=== PATIENT | female | born 1970 | race Caucasian/White ===

== ENCOUNTER 2021-01-16 12:16 | Outpatient (REF) | payer OTHER, SELFPAY ==
--- NOTE | ~2021-01-16 | XR_ITS ---
EXAMINATION: XR LUMBOSACRAL SPINE CLINICAL INFORMATION: Lower back pain. COMPARISON: Lumbar spine radiographs dated 06/22/2018. TECHNIQUE: Three views of the lumbosacral spine. FINDINGS: Normal vertebral body alignment. The lumbar lordosis is maintained. No acute fracture or subluxation. No loss of vertebral body height. Mild loss of intervertebral disc height with tiny anterior endplate osteophytes at L2-L3, unchanged. Additional tiny anterior endplate osteophytes are unchanged. No new lytic or blastic osseous lesion. No abnormal soft tissue calcification. XR/XR lumbar spine 2-3V IMPRESSION: Mild multilevel degenerative disc disease, unchanged.
== END 2021-01-16 12:17 | disposition home or self-care (01) ==
LOC: HO.XRAY 12:16
PROVIDERS: PCP Student in an Organized Health Care Education/Training Program; Visit Provider Student in an Organized Health Care Education/Training Program
DX: M54.5 Low back pain (principal)
CPT/HCPCS: 72100

== ENCOUNTER → 2021-03-05 13:58 | Outpatient (BNVA) | payer OTHER, SELFPAY | PROVIDERS: PCP Student in an Organized Health Care Education/Training Program; Visit Provider Internal Medicine ==

== ENCOUNTER 2021-03-21 16:29 | Outpatient (REF) | payer OTHER, SELFPAY ==
--- NOTE | ~2021-03-21 | MR_ITS ---
EXAMINATION: MR LUMBAR SPINE WITHOUT CONTRAST CLINICAL INFORMATION: 50-year-old with low back pain and complaints of bilateral lumbar radicular symptoms. COMPARISON: None TECHNIQUE: MRI of the lumbar spine was obtained using routine sequences without contrast. FINDINGS: Coronal Alignment: Normal. Sagittal Alignment: Normal. Lumbosacral Junction: Normal. Vertebral Bodies: Normal height. Disc Spaces and Endplates: Mild disc space height loss and disc desiccation noted at L5-S1, with a central radial annular fissure. Mild disc space height loss and disc desiccation at L2-L3 noted with mild spondylosis. Dozv-ay-bmizmwgl disc space height loss, Schmorl's nodes, disc desiccation, and mild spondylosis at T11-T12. Spinal Canal: No abnormal developmental findings. Bone Marrow: No significant marrow-replacing process or bone marrow edema. Conus Medullaris: Terminates at T12-L1. Morphology and signal is normal. Intradural Nerve Roots: Within normal limits. L5-S1: Minimal shallow central disc protrusion noted. Obve-dj-vnrawhaf facet arthrosis noted. No significant canal or neural foraminal stenosis. L4-L5: Minor annular bulging and ncnf-ch-rfecyazh bilateral facet arthrosis without significant canal or neural foraminal stenosis. L3-L4: Normal disc contour. No significant facet arthrosis, canal or neural foraminal stenosis. L2-L3: Mild posterior disc-osteophyte complex noted with mild flattening of the ventral dural sac. Nrkg-fd-lbuturaw facet arthropathy on the right. No significant canal or neural foraminal stenosis. L1-L2: No disc bulge or herniation and no significant facet arthrosis, canal or neural foraminal stenosis. Paraspinal/Retroperitoneal: The paravertebral soft tissues are grossly unremarkable. MR/MR lumbar spine wo con IMPRESSION: 1. Mild discogenic degenerative changes at L5-S1 and L2-L3 with minimal central disc protrusion and radial annular fissuring at L5-S1 and mild posterior disc-osteophyte complex at L2-L3, as described above, with multilevel rhhj-ms-urxuewgf degrees of facet arthropathy without significant spinal canal or neural foraminal stenosis. 2. Discogenic degenerative changes, Schmorl's nodes and mild spondylosis at T11-T12.
== END 2021-03-21 16:30 | disposition home or self-care (01) ==
LOC: HO.MRI 16:29
PROVIDERS: Visit Provider Internal Medicine
DX: M54.50 Low back pain, unspecified (principal)
CPT/HCPCS: 72148

== ENCOUNTER → 2021-04-06 09:18 | Outpatient (BNVA) | payer OTHER, SELFPAY | PROVIDERS: PCP Student in an Organized Health Care Education/Training Program; Visit Provider Internal Medicine ==

== ENCOUNTER 2021-05-16 06:57 | Outpatient (REF) | payer OTHER, SELFPAY ==
--- NOTE | ~2021-05-16 | FL_ITS ---
EXAMINATION: XR FLUOROSCOPY WITH IMAGES CLINICAL INFORMATION: M54.50 - Low back pain, unspecified COMPARISON: MR lumbar spine 03/21/2021 TECHNIQUE: Fluoroscopy performed by Dr. Andreas Baker. Fluoroscopy time: 0.2 minutes DAP: 1.74 Gycm2 Images: 3 FINDINGS: There is an interlaminar spinal needle at lower lumbar spine just right of midline. Epidural contrast is seen. No vascular communication. FL/FL guidance in treatment room IMPRESSION: Fluoroscopy for pain management procedure.
== END 2021-05-16 06:58 | disposition home or self-care (01) ==
LOC: HO.RADIR 06:57
PROVIDERS: Visit Provider Internal Medicine
DX: M54.50 Low back pain, unspecified (principal)
CPT/HCPCS: J1040; Q9967

== ENCOUNTER → 2021-06-15 08:52 | Outpatient (BNVA) | payer OTHER, SELFPAY | PROVIDERS: PCP Student in an Organized Health Care Education/Training Program; Visit Provider Internal Medicine ==

== ENCOUNTER 2021-07-18 06:13 | Outpatient (REF) | payer OTHER, SELFPAY ==
--- NOTE | ~2021-07-18 | FL_ITS ---
EXAMINATION: XR FL GUIDANCE WITH IMAGES CLINICAL INFORMATION: Spondylosis without myelopathy or radiculopathy. COMPARISON: Previous exam April 2021. TECHNIQUE: Fluoroscopy performed by DIANNA Rios. Fluoroscopy Time: 0.4 minutes. DAP: 1.9 Gycm2. Images: 4. FINDINGS: Images demonstrate needle placement and contrast injection adjacent to the bilateral lateral L3, L4 and L5 vertebral bodies. FL/FL guidance in treatment room IMPRESSION: Fluoroscopy guidance for pain management procedure.
== END 2021-07-18 06:14 | disposition home or self-care (01) ==
LOC: HO.RADIR 06:13
PROVIDERS: Visit Provider Internal Medicine
DX: M47.816 Spondylosis without myelopathy or radiculopathy, lumbar region (principal); M54.50 Low back pain, unspecified
CPT/HCPCS: 64493; 64494; Q9967

== ENCOUNTER → 2021-07-20 10:55 | Outpatient (BNVA) | payer OTHER, SELFPAY | PROVIDERS: Visit Provider Internal Medicine | DX: Z13.89 Encounter for screening for other disorder (principal) ==

== ENCOUNTER 2021-08-29 05:51 | Outpatient (REF) | payer OTHER, SELFPAY ==
--- NOTE | ~2021-08-29 | FL_ITS ---
EXAMINATION: XR FLUOROSCOPY WITH IMAGES CLINICAL INFORMATION: Spondylosis without myelopathy. COMPARISON: Previous exam June 2021. TECHNIQUE: Fluoroscopy performed by DIANNA Rios Fluoroscopy time: 0.4 minutes DAP: 1.8 Gy-cm2 Images: 3 FINDINGS: Images demonstrate needle placement and contrast injection adjacent to the bilateral lateral L4 and L5 vertebral bodies. FL/FL guidance in treatment room IMPRESSION: Fluoroscopy guidance for pain management procedure.
== END 2021-08-29 05:52 | disposition home or self-care (01) ==
LOC: HO.RADIR 05:51
PROVIDERS: Visit Provider Internal Medicine
DX: M47.816 Spondylosis without myelopathy or radiculopathy, lumbar region (principal)
CPT/HCPCS: 64493; 64494; J2795; Q9967

== ENCOUNTER 2021-09-07 11:22 | Outpatient (REF) | payer OTHER, SELFPAY ==
--- NOTE | ~2021-09-07 | XR_ITS ---
EXAMINATION: XR CHEST CLINICAL INFORMATION: Cough COMPARISON: Previous chest x-ray May 2016 TECHNIQUE: 2 views of the chest were obtained. FINDINGS: The cardiac and mediastinal contours are normal. The lungs are clear. There is no pleural effusion or pneumothorax. There are mild degenerative changes of the spine. XR/XR chest 2V IMPRESSION: No evidence for acute disease in the chest.
== END 2021-09-07 11:23 | disposition home or self-care (01) ==
LOC: HO.XRAY 11:22
PROVIDERS: Absent Provider Family Medicine; PCP Student in an Organized Health Care Education/Training Program; Visit Provider Internal Medicine
DX: R05.8 Other specified cough (principal); M47.816 Spondylosis without myelopathy or radiculopathy, lumbar region
CPT/HCPCS: 71046

== ENCOUNTER 2021-10-04 15:13 | Outpatient (REF) | payer OTHER, SELFPAY ==
--- NOTE | ~2021-10-04 | XR_ITS ---
EXAMINATION: XR KNEE, LEFT XR TIBIA/FIBULA, LEFT XR ANKLE, LEFT CLINICAL INFORMATION: Leg pain COMPARISON: None TECHNIQUE: 4 views of the left knee. This includes upright AP view. 2 views of the left tibia/fibula. 2 views of the left ankle. FINDINGS: Left knee: No fracture or subluxation. Compartmental joint spaces are maintained. No joint effusion. The soft tissues appear unremarkable. Left tibia/fibula: No fracture or cortical disruption. Diffuse mild soft tissue swelling. Left ankle: No fracture or dislocation. The ankle mortise is congruent. Small heel spurs noted. No ankle joint effusion. XR/XR tibia fibula LT 2V IMPRESSION: No acute osseous abnormality involving the imaged left lower extremity. Heel spurs at the ankle. Soft tissue swelling of the lower leg.
--- NOTE | ~2021-10-04 | XR_ITS ---
EXAMINATION: XR KNEE, LEFT XR TIBIA/FIBULA, LEFT XR ANKLE, LEFT CLINICAL INFORMATION: Leg pain COMPARISON: None TECHNIQUE: 4 views of the left knee. This includes upright AP view. 2 views of the left tibia/fibula. 2 views of the left ankle. FINDINGS: Left knee: No fracture or subluxation. Compartmental joint spaces are maintained. No joint effusion. The soft tissues appear unremarkable. Left tibia/fibula: No fracture or cortical disruption. Diffuse mild soft tissue swelling. Left ankle: No fracture or dislocation. The ankle mortise is congruent. Small heel spurs noted. No ankle joint effusion. XR/XR ankle LT 2V IMPRESSION: No acute osseous abnormality involving the imaged left lower extremity. Heel spurs at the ankle. Soft tissue swelling of the lower leg.
--- NOTE | ~2021-10-04 | XR_ITS ---
EXAMINATION: XR KNEE, LEFT XR TIBIA/FIBULA, LEFT XR ANKLE, LEFT CLINICAL INFORMATION: Leg pain COMPARISON: None TECHNIQUE: 4 views of the left knee. This includes upright AP view. 2 views of the left tibia/fibula. 2 views of the left ankle. FINDINGS: Left knee: No fracture or subluxation. Compartmental joint spaces are maintained. No joint effusion. The soft tissues appear unremarkable. Left tibia/fibula: No fracture or cortical disruption. Diffuse mild soft tissue swelling. Left ankle: No fracture or dislocation. The ankle mortise is congruent. Small heel spurs noted. No ankle joint effusion. XR/XR knee LT 4V IMPRESSION: No acute osseous abnormality involving the imaged left lower extremity. Heel spurs at the ankle. Soft tissue swelling of the lower leg.
== END 2021-10-04 15:14 | disposition home or self-care (01) ==
LOC: HO.XRAY 15:13
PROVIDERS: Absent Provider Student in an Organized Health Care Education/Training Program; PCP Student in an Organized Health Care Education/Training Program; Visit Provider Family Medicine
DX: M79.605 Pain in left leg (principal)
CPT/HCPCS: 73564; 73590; 73600

== ENCOUNTER 2021-11-07 13:29 | Day surgery (SDC) | payer OTHER, SELFPAY ==
--- NOTE | ~2021-11-07 | FL_ITS ---
EXAMINATION: XR FLUOROSCOPY WITH IMAGES CLINICAL INFORMATION: Back pain. Pain management procedure. COMPARISON: MR lumbar spine 03/21/2021 TECHNIQUE: Fluoroscopy performed by Dr. Andreas Baker. Fluoroscopy time: 0.5 minutes. Cumulative Dose: 18.1 mGy. DAP: 2.88 Gycm2. Images: 2. FINDINGS: There are spinal needle/electrodes overlying the bilateral outer left L3, L4, and L5 neural foramen. FL/FL guidance in OR IMPRESSION: Fluoroscopy for pain management procedures.
[2021-11-07 08:51] VITALS: BMI 38.7
[2021-11-07] MEDS: clonazePAM 1 MG TABLET PO (13:47)
[2021-11-07 13:48] VITALS: BP 115/71; PULSE 94; RESP 18; TEMP 36.8; O2SAT 97
[2021-11-07 16:12] VITALS: BP 134/77; PULSE 83; RESP 20; TEMP 36.4; O2SAT 98
--- NOTE | 2021-11-07 16:49 | MHC.SHP ---
Pre-Procedural Eval Section A Date of Service: 11/07/21 The patient is an INPATIENT: No Changes since office visit: Yes Patient answered all questions The History & Physical has been completed within 30 days and I have reviewed it.: No Section B Chief Complaint: Spondylosis without myelopathy or radiculopathy, l Relevant Family History (Specify if Yes): No Present Medications: see Short Stay Collaborative assessment Medical History: No relevant PMH History of Previous Operations: No relevant previous surgery Allergies: Allergies Allergy/AdvReac Type Severity Reaction Status Date / Time No Known Allergies Allergy Verified 09/07/21 11:23 Review of Systems Sugical H&P ROS: Negative: Constitution, Cardiovascular and Respiratory Exam Surgical H&P Exam: Normal: HEENT, Normal: Heart and Normal: Lungs Plan Diagnosis/Plan: Unchanged I have reviewed the history and physical and performed a pertinent physical examination on my patient. No changes have occurred unless specified.
--- NOTE | 2021-11-07 16:49 | PM.OP ---
Brief Operative Note Date of Service: 11/07/21 Pre-op diagnosis: .Lumbar spondylosis Post-op diagnosis: same Procedure: Radiofrequency lesioning medial branch nerves, Left L3, L4 medial branches and L5 dorsal ramus (L4/5 and L5/S1) (2 levels, 3 nerves) Surgeon: Andreas Baker MD Anesthesia: local Was an Produce Production Team Member used for this Procedure?: No Estimated blood loss (mL): 1 Pathology: none sent Condition: stable Disposition: same day
--- NOTE | 2021-11-07 16:50 | P.OP_ITS ---
Operative Note Operative Note Date of Service: 11/07/21 Narrative: Radiofrequency lesioning medial branch nerves, Left L3, L4 medial branches and L5 dorsal ramus (L4/5 and L5/S1) (2 levels, 3 nerves) After obtaining written consent, pre-procedure blood pressure and heart rate were stable and recorded in the nursing record. The patient was placed in the prone position. The lumbar area was prepped with chloraprep and draped in sterile fashion. The skin over the target for each medial branch nerve was anesthetized with 0.5% lidocaine. An 18 gauge radiofrequency cannula was advanced to each target site under fluoroscopic guidance. No paresthesias were elicited with needle placement and aspiration was negative for heme and CSF. Impedences were verified under 600 ohms. Sensory testing (50 Hz) and then motor testing (2 Hz) confirmed needle placement at each site within the appropriate voltage thresholds and needles were adjusted until no paresthesia was reported in the left lower extremity on either sensory or motor testing. Each site was injected with 0.5 ml 2% preservative-free lidocaine. Radiofrequency lesioning was performed for 90 seconds at 80 deg Celcius. Each site was then injected with 0.5ml 0.5% ropivacaine. The needles were removed, skin cleansed and a sterile bandages were applied. The patient tolerated the procedure well and no complications were encountered. Following the procedure the patient's vital signs were stable. The patient was discharged home in good condition with post- procedural instructions. Time Out: Immediately prior to the procedure, the following was verbally confirmed that there is a signed consent form and that the correct patient, planned procedure, site and side are consistent with documentation and that necessary equipment and/or blood products are available prior to the start of the case. Complications: none EBL: <1 cc
--- NOTE | 2021-11-07 17:32 | PC.NURSE ---
patient left discharge instructions upon discharge. call to review plan of care and review instructions with patient. surgical injection discharge instructions mailed to patient home
== END 2021-11-07 17:01 | disposition home or self-care (01) ==
PROVIDERS: PCP Student in an Organized Health Care Education/Training Program; Visit Provider Internal Medicine
PROC: (CPT 64635; principal; 2021-11-07 15:20)
DX: M47.816 Spondylosis without myelopathy or radiculopathy, lumbar region (principal); M12.9 Arthropathy, unspecified; M54.50 Low back pain, unspecified; E78.00 Pure hypercholesterolemia, unspecified; I10 Essential (primary) hypertension; E11.9 Type 2 diabetes mellitus without complications; Z79.899 Other long term (current) drug therapy; F17.210 Nicotine dependence, cigarettes, uncomplicated
CPT/HCPCS: 64635; 64636; J3300

== ENCOUNTER 2021-11-21 12:10 | Day surgery (SDC) | payer OTHER, SELFPAY ==
--- NOTE | ~2021-11-21 | FL_ITS ---
EXAMINATION: XR FLUOROSCOPY WITH IMAGES CLINICAL INFORMATION: Lumbar RFA. COMPARISON: MR lumbar spine 03/21/2021 TECHNIQUE: Fluoroscopy performed by Dr. Andreas Baker. Fluoroscopy time: 0.4 minutes. Cumulative Dose: 19.3 mGy. DAP: 3.41 Gy-cm2. Images: 2. FINDINGS: There are spinal needles overlying the outer right L3, L4, and L5 neural foramen. FL/FL guidance in OR IMPRESSION: Fluoroscopy for pain management procedures.
[2021-11-21 12:16] VITALS: BP 122/91; PULSE 87; RESP 19; TEMP 36; O2SAT 98; BMI 34.7
[2021-11-21] MEDS: LORazepam 1 MG TABLET PO (12:26)
[2021-11-21 14:35] VITALS: BP 141/74; PULSE 79; RESP 16; TEMP 36.3; O2SAT 99
--- NOTE | 2021-11-22 12:04 | MHC.SHP ---
Pre-Procedural Eval Section A Date of Service: 11/21/21 The patient is an INPATIENT: No Changes since office visit: Yes Patient answered all questions The History & Physical has been completed within 30 days and I have reviewed it.: No Section B Chief Complaint: Spondylosis without myelopathy or radiculopathy Details of Present Illness: low back pain Relevant Family History (Specify if Yes): No Relevant Social History: None Present Medications: see Short Stay Collaborative assessment Medical History: No relevant PMH History of Previous Operations: No relevant previous surgery Allergies: Allergies Allergy/AdvReac Type Severity Reaction Status Date / Time No Known Allergies Allergy Verified 09/07/21 11:23 Review of Systems Sugical H&P ROS: Negative: Constitution, Cardiovascular and Respiratory Exam Surgical H&P Exam: Normal: HEENT, Normal: Heart and Normal: Lungs Plan Diagnosis/Plan: Unchanged I have reviewed the history and physical and performed a pertinent physical examination on my patient. No changes have occurred unless specified.
--- NOTE | 2021-11-22 12:05 | P.BOP_ITS ---
Brief Operative Note Date of Service: 11/21/21 Pre-op diagnosis: Lumbar spondylosis Post-op diagnosis: same Procedure: Right L3, L4 medial branch, L5 dorsal ramus radiofrequency ablation Implants: None Surgeon: Andreas Baker MD Anesthesia: local Was an Material Preparation Worker used for this Procedure?: No Estimated blood loss (mL): 1 Pathology: none sent Condition: stable Disposition: same day
--- NOTE | 2021-11-22 12:07 | W.PM.OPN ---
Operative Note Operative Note Date of Service: 11/21/21 Narrative: Radiofrequency lesioning medial branch nerves, Right L3, L4 medial branches and L5 dorsal ramus (L4/5 and L5/S1) (2 levels, 3 nerves) After obtaining written consent, pre-procedure blood pressure and heart rate were stable and recorded in the nursing record. The patient was placed in the prone position. The lumbar area was prepped with chloraprep and draped in sterile fashion. The skin over the target for each medial branch nerve was anesthetized with 0.5% lidocaine. An 18 gauge radiofrequency cannula was advanced to each target site under fluoroscopic guidance. No paresthesias were elicited with needle placement and aspiration was negative for heme and CSF. Impedences were verified under 600 ohms. Sensory testing (50 Hz) and then motor testing (2 Hz) confirmed needle placement at each site within the appropriate voltage thresholds. Each site was injected with 0.5 ml 2% preservative-free lidocaine. Radiofrequency lesioning was performed for 90 seconds at 80 deg Celcius. Each site was then injected with 0.5ml 0.5% ropivacaine. The needle was removed, skin cleansed and a sterile bandage was applied. The patient tolerated the procedure well and no complications were encountered. Following the procedure the patient's vital signs were stable. The patient was discharged home in good condition with post-procedural instructions. Time Out: Immediately prior to the procedure, the following was verbally confirmed that there is a signed consent form and that the correct patient, planned procedure, site and side are consistent with documentation and that necessary equipment and/or blood products are available prior to the start of the case. Complications: none EBL: <5 cc
== END 2021-11-21 14:43 | disposition home or self-care (01) ==
PROVIDERS: PCP Student in an Organized Health Care Education/Training Program; Visit Provider Internal Medicine
PROC: (CPT 64635; principal; 2021-11-21 13:10)
DX: M47.816 Spondylosis without myelopathy or radiculopathy, lumbar region (principal); M54.50 Low back pain, unspecified; F41.8 Other specified anxiety disorders; I10 Essential (primary) hypertension; E11.9 Type 2 diabetes mellitus without complications; E78.00 Pure hypercholesterolemia, unspecified; Z79.899 Other long term (current) drug therapy
CPT/HCPCS: 64635; 64636

== ENCOUNTER 2022-05-07 09:57 | Outpatient (REF) | payer OTHER, SELFPAY ==
--- NOTE | ~2022-05-07 | XR_ITS ---
EXAMINATION: XR SHOULDER, LEFT CLINICAL INFORMATION: Chronic left shoulder pain. COMPARISON: None TECHNIQUE: Left shoulder is imaged in 4 views. FINDINGS: No fracture, dislocation, destructive process. Acromioclavicular alignment is normal. Tiny spur at the greater tuberosity. No definite rotator cuff calcifications. There is mild spurring lateral acromium likely at origin deltoid. Left lung apex unremarkable. XR/XR shoulder LT min 2V IMPRESSION: 1. No fracture, dislocation, destructive process. 2. Tiny spur at greater tuberosity. Minor spurring at origin deltoid.
== END 2022-05-07 09:58 | disposition home or self-care (01) ==
LOC: HO.XRAY 09:57
PROVIDERS: PCP Student in an Organized Health Care Education/Training Program; Visit Provider Internal Medicine
DX: M79.622 Pain in left upper arm (principal)
CPT/HCPCS: 73030

== ENCOUNTER → 2022-10-14 15:21 | Outpatient (BNVA) | payer OTHER, SELFPAY | PROVIDERS: PCP Student in an Organized Health Care Education/Training Program; Visit Provider Internal Medicine ==

== ENCOUNTER 2023-06-07 07:19 | Outpatient (REF) | payer OTHER, SELFPAY | END 2023-06-07 07:20 | disposition home or self-care (01) | LOC: HO.MAMMO 07:19 | PROVIDERS: PCP Student in an Organized Health Care Education/Training Program; Visit Provider Student in an Organized Health Care Education/Training Program | DX: Z12.31 Encounter for screening mammogram for malignant neoplasm of breast (principal) | CPT/HCPCS: 77063; 77067 ==

== ENCOUNTER → 2023-06-07 07:30 | Outpatient (BNV) | payer OTHER, SELFPAY | PROVIDERS: PCP Student in an Organized Health Care Education/Training Program; Visit Provider Radiology Diagnostic Radiology | DX: Z12.31 Encounter for screening mammogram for malignant neoplasm of breast (principal) | CPT/HCPCS: 77063; 77067 ==

== ENCOUNTER 2023-07-03 08:26 | Emergency (ER) | payer OTHER, SELFPAY ==
[2023-07-03 08:30] VITALS: BP 143/77; PULSE 86; RESP 18; TEMP 35.8; O2SAT 98; BMI 38.4
--- NOTE | 2023-07-03 09:03 | ED_ITS ---
HPI - General Adult General Chief complaint: Headache Stated complaint: migraine Time Seen by Provider: 07/03/23 08:48 History of Present Illness HPI narrative: The patient is a 53-year-old woman who says that she has had a headache for about 6 days. She says that when she was in her 20s she had fairly frequent migraines but then her migraine stopped. She says that when this headache started last week at 1st she thought it was just a regular headache but the headache persisted and became more severe and was associated with photophobia and nausea. Three days ago on Friday she went to see her PCP who prescribed Fioricet. She has been using Fioricet but it has not helped. 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 She last worked 2 days ago despite the headache. This morning the headache persisted and she drove herself to the hospital. She has had no fever, sweats, chills. She has had some nausea. Related Data Home Medications Medication Instructions Recorded Confirmed cetirizine 10 mg tablet 10 mg PO DAILY PRN Pain 03/05/21 10/14/22 pantoprazole 40 mg tablet,delayed 40 mg PO DAILY 03/05/21 10/14/22 release sertraline 25 mg tablet (Zoloft) 25 mg PO DAILY 03/05/21 10/14/22 Previous Rx's Medication Instructions Recorded tizanidine 2 mg capsule 2 mg PO TID PRN for muscle spasm 06/04/23 #90 caps Allergies Allergy/AdvReac Type Severity Reaction Status Date / Time No Known Allergies Allergy Verified 10/14/22 15:38 Review of Systems 2 Review of Systems: Yes all other systems are reviewed and are negative [facility] Past Medical History Medical History (Updated 07/03/23 @ 12:20 by Stevie Zamora MD) Lumbar spondylosis Lumbar radicular pain Low back pain Candidal intertrigo Hypercholesterolemia DM type 2 (diabetes mellitus, type 2) HTN (hypertension), benign Arthropathy Anxiety and depression Social History Social History Patient Tobacco Use Status: Current everyday Tobacco user Smoked in Last 30 Days: Yes Use of substances other than those prescribed or required for medical reasons: No Advance Directives: No Physical Exam ED Vital Signs: Vital Signs - 24 hr 07/03/23 08:30 07/03/23 10:02 07/03/23 12:41 Temperature 96.5 F L 98.2 F 98 F Pulse Rate 86 77 64 Respiratory Rate 18 17 18 Blood Pressure 143/77 H 132/61 134/63 Pulse Oximetry 98 98 98 Oxygen Delivery Method Room Air Room Air Room Air BMI result Body Mass Index 38.4 Const Other: The patient is awake and alert. She was wearing dark glasses in a darkened room. She had a subdued demeanor but otherwise did not seem in acute distress or toxic. HENMT Other: Face is symmetrical. Mucous membranes moist Eyes Other: Pupils are round equal, conjunctivae are clear, extraocular movements intact Neck Other: Neck is supple Resp Effort & Inspection: normal respiratory effort Auscultation: clear to auscultation bilaterally Cardio Rate: regular rate Rhythm: regular rhythm Heart sounds: S1 normal heart sound present and S2 normal heart sound present Skin Other: The skin is dry and unremarkable Neuro Other: The patient is awake and alert. She is photophobic. Speech is clear. Face is symmetrical. Eye movements intact. She moves her extremities normally. Seems neurologically intact Extrem Other: No peripheral edema. Medications Administered Discontinued Medications Generic Name Dose Route Start Last Admin Trade Name Avtar PRN Reason Stop Dose Admin Diphenhydramine HCl 25 mg 07/03/23 09:05 07/03/23 09:52 Diphenhydramine Hcl 50 Mg/Ml Vial IVPUSH 07/03/23 09:06 25 mg ONCE ONE Administration Sodium Chloride 1,000 mls @ 999 mls/hr 07/03/23 09:15 07/03/23 11:07 Ns IV 07/03/23 10:15 Infused .Q1H1M TARIQ Infusion Ketorolac Tromethamine 15 mg 07/03/23 09:05 07/03/23 09:52 Ketorolac Tromethamine 15 Mg/Ml Vial IVPUSH 07/03/23 09:06 15 mg ONCE ONE Administration Prochlorperazine Edisylate 10 mg 07/03/23 10:04 07/03/23 10:07 Prochlorperazine Edisylate 10 Mg/2 Ml Vial IVPUSH 07/03/23 10:05 10 mg ONCE ONE Administration Medical Decision Making Medical Decision Making [facility] Narrative: The patient is a 53-year-old woman who presents with 6 days of headache that she describes as a migraine headache. She has not had a migraine for many years but she had migraines in her 20s. Her description of the headache does not really suggest any red flags. There was no sudden onset to the headache. There have been no fevers. She has no neurological findings. Her neck is supple. The patient was treated clinically with prochlorperazine, ketorolac, diphenhydramine, and IV fluids. She had excellent improvement in her headache and was eager for discharge. Lab Data 07/03/23 09:48 07/03/23 09:48 Labs: Lab Results 07/03/23 Range/Units 09:48 WBC 7.2 (4.8-10.8) X10*3/uL RBC 5.07 (4.20-5.50) X10*6/uL Hgb 11.5 L (12.0-16.0) g/dl Hct 38.1 (37.0-47.0) % MCV 75.1 L (80.0-98.0) fL MCH 22.7 L (27.0-33.0) pg MCHC 30.2 L (31.0-35.0) g/dl RDW 17.6 H (11.0-16.0) % Plt Count 302 (160-400) X10*3/uL MPV 9.5 (9.4-12.3) fL Immature Gran % (Auto) 0.8 H (0.0-0.4) % Neut % (Auto) 63.3 (45-73) % Lymph % (Auto) 28.0 (20-40) % Harris % (Auto) 4.1 (2-11) % Eos % (Auto) 2.8 (0-4) % Baso % (Auto) 1.0 (0-2) % Lymph # (Auto) 2.0 (1.2-4.9) X10*3/uL Harris # (Auto) 0.3 (0.1-1.2) X10*3/uL Eos # (Auto) 0.2 (0.0-0.4) X10*3/uL Baso # (Auto) 0.1 (0.0-0.2) X10*3/uL Abs Immat Gran (auto) 0.06 H (0.00-0.03) X10*3/uL Absolute Neuts (auto) 4.6 (2.0-8.3) x10*3/uL Absolute Nucleated RBC 0.000 (0.0-0.012) X10*3/uL Nucleated RBC % (auto) 0.0 (0.0-0.2) /100WBC Sodium 138 (135-145) mmol/L Potassium 3.6 (3.3-5.1) mmol/L Chloride 103 (96-108) mmol/L Carbon Dioxide 29 (22-29) mmol/L Anion Gap 10 L (12-20) BUN 10 (9-16) mg/dL Creatinine 0.84 (0.5-1.4) mg/dL Estim Creat Clear Calc 97.3 Estimated GFR > 60 Random Glucose 190 H (60-115) mg/dL Calcium 9.0 (8.4-10.2) mg/dL Magnesium 1.9 (1.6-2.6) mg/dL Total Bilirubin 0.3 (0.0-1.0) mg/dL Direct Bilirubin 0.1 (0.0-0.5) mg/dL AST 12 (5-31) U/L ALT 16 (0-31) U/L Alkaline Phosphatase 78 (39-117) U/L Troponin I High Sens < 2.7 (<3.5-17.0) ng/L C-Reactive Protein 1.18 H (< or = 0.50) mg/dL B-Natriuretic Peptide < 10 (<100) pg/mL Total Protein 7.1 (6.5-8.0) g/dL Albumin 3.8 (3.5-5.0) g/dL Independent Interpretation I performed an independent interpretation of an: EKG Interpretation: EKG at 09:17 shows normal sinus rhythm at 76 beats per minute. It is a normal EKG. Discharge Plan Discharge Clinical Impression: Headache, migraine Patient Disposition: Home, Self-Care Additional Instructions: Please rest and take it easy today. Continue your regular medications. Please follow up soon with your regular doctor to discuss this episode further. Return to the emergency room if significantly worse Prescriptions: No Action tizanidine 2 mg capsule 2 mg PO TID PRN (Reason: for muscle spasm) Qty: 90 0RF cetirizine 10 mg tablet 10 mg PO DAILY PRN (Reason: Pain) pantoprazole 40 mg tablet,delayed release (DR/EC) 40 mg PO DAILY sertraline [Zoloft] 25 mg tablet 25 mg PO DAILY Referrals: Kristin Rivera MD [Primary Care Provider] - (migraine) Interventions: ED Discharge Assessment Last Done: 07/03/23 12:42 Discharge Date/Time: 07/03/23 12:42
--- NOTE | 2023-07-03 09:06 | ECG_ITS ---
Test Reason : MIGRAINE Blood Pressure : / mmHG Vent. Rate : 076 BPM Atrial Rate : 076 BPM P-R Int : 172 ms QRS Dur : 088 ms QT Int : 410 ms P-R-T Axes : 018 042 021 degrees QTc Int : 461 ms Normal sinus rhythm Nonspecific T wave abnormality Prolonged QT Abnormal ECG When compared with ECG of 31-MAY-2016 07:07, No significant change was found Referred By: Stevie Zamora Electronically Signed By:Deric Perez
[2023-07-03 09:52] LABS: MANUAL DIFF FLAG NO
[2023-07-03] MEDS: Ketorolac Tromethamine 15 MG/ML VIAL IVPUSH (09:52)
[2023-07-03] MEDS: diphenhydrAMINE HCL 50 MG/ML VIAL 25 MG IVPUSH (09:52)
[2023-07-03 09:54] LABS: Basophils Absolute Auto 0.1 X10*3/uL (0.0-0.2); Eosinophils Absolute Auto 0.2 X10*3/uL (0.0-0.4); Eosinophils Percent Auto 2.8 % (0-4); Hematocrit 38.1 % (37.0-47.0); Hemoglobin 11.5 g/dl (12.0-16.0); Imm Gran Abs Auto 0.06 X10*3/uL (0.00-0.03); Imm Gran Pct Auto 0.8 % (0.0-0.4); Mean Corpuscular HGB Conc 30.2 g/dl (31.0-35.0); Mean Corpuscular Hemoglobin 22.7 pg (27.0-33.0); Mean Corpuscular Volume 75.1 fL (80.0-98.0); Mean Platelet Volume 9.5 fL (9.4-12.3); Monocytes Absolute Auto 0.3 X10*3/uL (0.1-1.2); Monocytes Percent Auto 4.1 % (2-11); Neutrophils Absolute Auto 4.6 x10*3/uL (2.0-8.3); Neutrophils Percent Auto 63.3 % (45-73); Platelet Count 302 X10*3/uL (160-400); Red Blood Count 5.07 X10*6/uL (4.20-5.50); Red Cell Distribution Width 17.6 % (11.0-16.0); White Blood Count 7.2 X10*3/uL (4.8-10.8)
[2023-07-03] MEDS: 0.9 % Sodium Chloride 1,000 ML 999 ML IV (09:54)
[2023-07-03 10:02] VITALS: BP 132/61; PULSE 77; RESP 17; TEMP 36.8; O2SAT 98
[2023-07-03] MEDS: Prochlorperazine Edisylate 10 MG/2 ML VIAL IVPUSH (10:07)
[2023-07-03 10:20] LABS: Alanine Aminotransferase 16 U/L (0-31); Albumin Level 3.8 g/dL (3.5-5.0); Alkaline Phosphatase 78 U/L (39-117); Anion Gap 10 (12-20); Aspartate Amino Transferase 12 U/L (5-31); Bilirubin Direct 0.1 mg/dL (0.0-0.5); Bilirubin Total 0.3 mg/dL (0.0-1.0); Blood Urea Nitrogen 10 mg/dL (9-16); C Reactive Protein 1.18 mg/dL (< or = 0.50); Carbon Dioxide 29 mmol/L (22-29); Chloride 103 mmol/L (96-108); Creatinine Clr Calc Pharmacy 97.3; Estimated Glomerular Filt Rate > 60; Glucose Random 190 mg/dL (60-115); Magnesium 1.9 mg/dL (1.6-2.6); Potassium 3.6 mmol/L (3.3-5.1); Sodium 138 mmol/L (135-145); Total Protein 7.1 g/dL (6.5-8.0)
[2023-07-03 10:22] LABS: B Type Natriuretic Peptide < 10 pg/mL (<100)
[2023-07-03 10:29] LABS: Troponin-I High Sensitivity < 2.7 ng/L (<3.5-17.0)
[2023-07-03 12:41] VITALS: BP 134/63; PULSE 64; RESP 18; TEMP 36.6; O2SAT 98
== END 2023-07-03 12:42 | disposition home or self-care (01) ==
PROVIDERS: Emergency Provider Emergency Medicine; PCP Student in an Organized Health Care Education/Training Program
DX: G43.909 Migraine, unspecified, not intractable, without status migrainosus (principal); R11.0 Nausea; R94.31 Abnormal electrocardiogram [ECG] [EKG]; R06.02 Shortness of breath; F17.200 Nicotine dependence, unspecified, uncomplicated; Z79.899 Other long term (current) drug therapy
CPT/HCPCS: 36415; 80048; 80076; 83735; 83880; 84484; 85025; 86140; 93005; 96361; 96374; 96375; 99284; 99285; J0737; J1200; J1885

== ENCOUNTER → 2023-07-03 09:06 | Outpatient (BNV) | payer OTHER, SELFPAY | PROVIDERS: Emergency Provider Emergency Medicine; PCP Student in an Organized Health Care Education/Training Program; Visit Provider Internal Medicine Cardiovascular Disease | DX: I45.81 Long QT syndrome (principal) | CPT/HCPCS: 93010 ==

== ENCOUNTER 2024-03-12 08:40 | Outpatient (AMB) | payer OTHER, SELFPAY ==
[2024-03-12 08:47] VITALS: BP 130/72; PULSE 105; RESP 16; O2SAT 96; BMI 36.8
--- NOTE | 2024-03-12 08:47 | A.OFFVIS_ITS ---
Vital Signs 03/12/24 08:47 Height 5 ft 6 in Weight 228 lb BMI 36.8 BP 130/72 Blood Pressure Location Lt brachial Position Sitting Respiration 16 Pulse 105 H Pulse Source Pulse Oximeter Pulse Oximetry (%) 96 Oxygen Delivery Method Room Air Intake Visit Reasons: back pain Allergies No Known Allergies Allergy (Verified 03/12/24 08:48) Medication List - Last Reconciled 03/12/24 by Jerrica Rodríguez LPN cetirizine 10 mg PO DAILY PRN pantoprazole 40 mg PO DAILY sertraline (Zoloft) 25 mg PO DAILY tizanidine 2 mg PO TID PRN HPI HPI back pain: Details: 53-year-old female who presents today to the office for a back pain. 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 She states that she quit smoking. She reports continued muscle spasms in the back associated with chronic persistent back pain. The pain started returning about two months ago. Her pain is worse when lying down in a prone position. She has not received SIJ injections in the past. Her pain is localized in the midline region. She had fractured her arm a few years ago and had cortisone injections for pain relief.?She has a psychologist. She lives alone but her children live nearby. Past Procedures: 11/22/21: Right L3-L4-L5 RFA ? 50% relief. 11/07/21: Left L3-L4-L5 RFA ? 50% relief. 08/28/21: Bilateral lumbar L3-L4-L5 MBBs - 90% relief ongoing 2 weeks out 07/18/21: Bilateral lumbar L3-L4-L5 MBBs ? 100% for first 24 hours followed by 60% relief ongoing. 05/16/21: L5-S1 interlaminar midline injection ? 50% relief in back pain with complete resolution of radicular symptoms. [facility] Medical History (Updated 03/23/24 @ 08:40 by Andreas Baker MD) Lumbar spondylosis Lumbar radicular pain Low back pain Candidal intertrigo Hypercholesterolemia DM type 2 (diabetes mellitus, type 2) HTN (hypertension), benign Arthropathy Anxiety and depression Social History Patient Tobacco Use Status: Current everyday Tobacco user Review of Systems Const All systems reviewed & are unremarkable except as noted in HPI and below Physical Exam Vital Signs: Last Vital Signs Pulse 105 H 03/12/24 08:47 Resp 16 03/12/24 08:47 BP 130/72 03/12/24 08:47 Pulse Ox 96 03/12/24 08:47 Oxygen Delivery Method Room Air 03/12/24 08:47 BMI result Body Mass Index 36.8 General: Appears afebrile. Alert and oriented. Mood and affect appropriate. Follows and participates in conversation appropriately. Respiratory effort is unlabored. Able to transition from sit to stand unassisted. Ambulates with bilaterally normal heel strike and toe off. Results Reviewed Results Reviewed: 03/21/21: MR LUMBAR SPINE WITHOUT CONTRAST FINDINGS: Coronal Alignment: Normal. Sagittal Alignment: Normal. Lumbosacral Junction: Normal. Vertebral Bodies: Normal height. Disc Spaces and Endplates: Mild disc space height loss and disc desiccation noted at L5-S1, with a central radial annular fissure. Mild disc space height loss and disc desiccation at L2-L3 noted with mild spondylosis. Picb-xj-mfrrthqb disc space height loss, Schmorl's nodes, disc desiccation, and mild spondylosis at T11-T12. Spinal Canal: No abnormal developmental findings. Bone Marrow: No significant marrow-replacing process or bone marrow edema. Conus Medullaris: Terminates at T12-L1. Morphology and signal is normal. Intradural Nerve Roots: Within normal limits. L5-S1: Minimal shallow central disc protrusion noted. Fxcu-yn-njncluec facet arthrosis noted. No significant canal or neural foraminal stenosis. L4-L5: Minor annular bulging and ibbh-nv-evfqdvgf bilateral facet arthrosis without significant canal or neural foraminal stenosis. L3-L4: Normal disc contour. No significant facet arthrosis, canal or neural foraminal stenosis. L2-L3: Mild posterior disc-osteophyte complex noted with mild flattening of the ventral dural sac. Rpcq-hy-qygsqbfs facet arthropathy on the right. No significant canal or neural foraminal stenosis. L1-L2: No disc bulge or herniation and no significant facet arthrosis, canal or neural foraminal stenosis. Paraspinal/Retroperitoneal: The paravertebral soft tissues are grossly unremarkable. IMPRESSION: 1. Mild discogenic degenerative changes at L5-S1 and L2-L3 with minimal central disc protrusion and radial annular fissuring at L5-S1 and mild posterior disc-osteophyte complex at L2-L3, as described above, with multilevel kdbk-du-mpjslxhg degrees of facet arthropathy without significant spinal canal or neural foraminal stenosis. 2. Discogenic degenerative changes, Schmorl's nodes and mild spondylosis at T11-T12. Assessment & Plan Assessment & Plan (1) Dysfunction of the multifidus muscle of lumbar region: Code(s): M62.85 - Dysfunction of the multifidus muscles, lumbar region Category: Medical (2) Low back pain: Code(s): M54.50 - Low back pain, unspecified Category: Medical (3) Lumbar spondylosis: Code(s): M47.816 - Spondylosis without myelopathy or radiculopathy, lumbar region Category: Medical Plan Once again, I reviewed her MRI, showing intervertebral disc degeneration as well as lumbar facet arthritis. She has axial low back pain that has only been partially responsive to epidural steroids and lumbar facet radiofrequency ablation. Her MRI scan also shows multifidus atrophy and fibrosis. I think she would benefit from restorative multifidus stimulation given her young age. I am not keen to implant a permanent multifidus stimulation device, but she would benefit from temporary stimulation of the medial branch nerves and multifidus muscle. She already has a therapist and is in an otherwise good psychological state. She will request her therapist to provide us with a clearance letter for planned neuromodulation therapy. Once we receive that letter, we will submit a prior authorization request for approval for restorative stimulation of the lumbar medial branch nerve and multifidus muscle. Scribed for Dr. Baker by Marco A Zavala, medical records secretary, on 03/12/2024. I, Dr. Baker, have personally reviewed and agree with the information entered by the scribe. Coding Level of Care Code Est Pt Level 3 (74966) Diagnoses Dysfunction of the multifidus muscle of lumbar region M62.85 Low back pain M54.50 Lumbar spondylosis M47.816
== END 2024-03-12 09:15 | disposition home or self-care (01) ==
PROVIDERS: PCP Student in an Organized Health Care Education/Training Program; Visit Provider Internal Medicine
DX: M62.85 Dysfunction of the multifidus muscles, lumbar region (principal); M54.50 Low back pain, unspecified; M47.816 Spondylosis without myelopathy or radiculopathy, lumbar region
CPT/HCPCS: 99213

== ENCOUNTER 2024-05-06 06:24 | Outpatient (REF) | payer OTHER, SELFPAY ==
--- NOTE | ~2024-05-06 | FL_ITS ---
EXAMINATION: FL GUIDANCE ONLY HISTORY: M47.816 - Spondylosis without myelopathy or radiculopathy, lumbar region COMPARISON: None available. TECHNIQUE: Fluoroscopy time: 0.1 minute. Cumulative Dose: 2.13 mGy. DAP: 0.0194 uGy-m2 (microgray-meter squared). Images: 3. FINDINGS: Three fluoroscopic spot films of the lumbar spine were obtained. A probe is seen from a posterior approach. It is uncertain which level this represents based on these images. FL/FL guidance in treatment room IMPRESSION: Fluoroscopy during procedure. Please see procedure report for additional information. Electronically signed by: Robin Saba MD 05/14/2024 03:13 PM JULIETA
== END 2024-05-06 06:25 | disposition home or self-care (01) ==
LOC: CF 06:24
PROVIDERS: Visit Provider Internal Medicine
DX: M47.816 Spondylosis without myelopathy or radiculopathy, lumbar region (principal); M62.85 Dysfunction of the multifidus muscles, lumbar region; M54.50 Low back pain, unspecified
CPT/HCPCS: 64555; C1778; J2003

== ENCOUNTER 2024-05-06 08:32 | Outpatient (REF) | payer OTHER, SELFPAY ==
[2024-05-06 14:23] LABS: Estimated Average Glucose 217 mg/dL; Hemoglobin A1C 250.3361 umol/L; Hemoglobin A1c % 9.2 % (<6.0); Total Hemoglobin (HGBA1C) 3254.7649 umol/L
[2024-05-06 14:48] LABS: Alanine Aminotransferase 20 U/L (0-31); Albumin Level 3.8 g/dL (3.5-5.0); Alkaline Phosphatase 91 U/L (39-117); Anion Gap 13 (12-20); Aspartate Amino Transferase 24 U/L (5-31); Bilirubin Direct 0.2 mg/dL (0.0-0.5); Bilirubin Total 0.4 mg/dL (0.0-1.0); Blood Urea Nitrogen 12 mg/dL (9-16); Calcium 9.3 mg/dL (8.4-10.2); Carbon Dioxide 29 mmol/L (22-29); Chloride 103 mmol/L (96-108); Cholesterol 292 mg/dL (<200); Estimated Glomerular Filt Rate > 60; Glucose Random 132 mg/dL (60-115); HDL Cholesterol 67 mg/dL (>40); LDL Cholesterol Calculated 193 mg/dL (<100); Potassium 4.2 mmol/L (3.3-5.1); Sodium 141 mmol/L (135-145); Triglycerides 163 mg/dL (<150)
== END 2024-05-06 08:33 | disposition home or self-care (01) ==
LOC: HO.CHCLDS 08:32
PROVIDERS: Visit Provider Student in an Organized Health Care Education/Training Program
DX: E11.9 Type 2 diabetes mellitus without complications (principal)
CPT/HCPCS: 36415; 80048; 80061; 80076; 83036

== ENCOUNTER 2024-05-06 09:56 | Outpatient (AMB) | payer OTHER, SELFPAY ==
[2024-05-06 10:09] VITALS: BP 113/64; PULSE 104; O2SAT 97
--- NOTE | 2024-05-06 10:09 | A.OFFVIS_ITS ---
Vital Signs 05/06/24 10:09 05/06/24 10:51 BP 113/64 98/69 Blood Pressure Location Rt brachial Lt brachial Position Sitting Sitting Pulse 104 H 96 Pulse Source Pulse Oximeter Pulse Oximeter Pulse Oximetry (%) 97 98 Oxygen Delivery Method Room Air Room Air Intake Visit Reasons: Left L3 Sprint Allergies No Known Allergies Allergy (Verified 03/12/24 08:48) HPI HPI Left L3 Sprint: Details: Patient presents for scheduled procedure. Denies any recent cough, cold, infection, fever or other significant changes in medical history since last office visit. [facility] Medical History (Updated 03/23/24 @ 08:40 by Andreas Baker MD) Lumbar spondylosis Lumbar radicular pain Low back pain Candidal intertrigo Hypercholesterolemia DM type 2 (diabetes mellitus, type 2) HTN (hypertension), benign Arthropathy Anxiety and depression Social History Patient Tobacco Use Status: Current everyday Tobacco user Physical Exam Vital Signs: Last Vital Signs Pulse 104 H 05/06/24 10:09 BP 113/64 05/06/24 10:09 Pulse Ox 97 05/06/24 10:09 Oxygen Delivery Method Room Air 05/06/24 10:09 Office Procedures Details: Lumbar Medial Branch Nerve Stimulation Lead Placement, SPR (Sprint) System, Left L3 ? After the risks, benefits and alternatives were discussed with the patient and informed consent was obtained, patient was placed in the prone position and padded to foster comfort. The skin overlying the lumbosacral spine was prepped and draped in sterile fashion. Fluoroscopy was used to identify the spinous process and lamina in the center of the patient?s region of pain. After identifying and marking the intended target along the course of the medial branch nerve, the skin around the planned entry point and the subcutaneous tissues were injected with lidocaine 1%. An introducer needle and stimulating probe were assembled, inserted and advanced along the intended course of the medial branch nerve as it traverses the lamina medial and inferior to the zygapophyseal joint, taking care to maintain the proper depth of insertion as the introducer is advanced under fluoroscopic gu idance. The introducer needle was delivered to a location in proximity to the nerve. Multiple stimulation parameters were used to deliver stimulation to the target medial branch nerve in concert with stimulating at multiple positions around the nerve. Nerve target acquisition was confirmed noting generation of paresthesias in the paravertebral regions corresponding to the level being stimulated. Various electrical parameter combinations were tested, and the lead location was adjusted (physically relocated) until the patient indicated paresthesia/muscle tension overlapping the distribution of the patient?s typical region of pain. The stimulating probe was removed from the introducer and a percutaneous lead was guided through the needle and delivered to a location in similar proximity to the nerve. Final location was verified with electrical stimulation and documented with fluoroscopy. The introducer needle was removed, and the exposed end of the percutaneous lead was attached to an external stimulator unit. Various electrical parameter combinations were again tested until the patient indicated paresthesia or muscle tension overlapping the distribution of the patient?s typical region of pain. After confirming that lead impedance was in the normal range, the external unit was detached, the needle was removed, and the lead was anchored at the skin. The lead was threaded into the connector block and electrical continuity and desired patient response was confirmed. The connector block was attached to the external stimulator unit. The site was covered with a sterile occlusive dressing. The patient was observed for stability of vital signs and comfort. Sprint PNS Device: Sprint PNS Device [id number] Percutaneous Peripheral Neuroelectrode Procedure: 08014 - Percutaneous Peripheral Neuroelectrode Procedure code (CPT) selection complete Office Meds lidocaine HCl 10 mg/mL (1 %) injection solution Performing Provider: Anahi Read APRN, CNP Performing Location: [facility] Administered by: Andreas Baker MD on 05/06/24 10:34 Dose Route Admin Location Dispensed Lot Number Expiration Date NDC [employer] 50 mg subcut 5 mL Assessment & Plan Assessment & Plan (1) Dysfunction of the multifidus muscle of lumbar region: Code(s): M62.85 - Dysfunction of the multifidus muscles, lumbar region Category: Medical (2) Lumbar spondylosis: Code(s): M47.816 - Spondylosis without myelopathy or radiculopathy, lumbar region Category: Medical (3) Low back pain: Code(s): M54.50 - Low back pain, unspecified Category: Medical Plan Patient is status post temporary left L3 medial branch nerve stimulator placement. Patient tolerated procedure well and was discharged home in stable condition with discharge instructions. All questions were answered. We will follow-up via telephone or in clinic to assess response to therapy. A follow-up appointment was made during today's visit. Orders: Orders FL guidance in treatment room Today M47.816 - Spondylosis without myelopathy or radiculopathy, lumbar region AMB Sprint PNS Today M47.816 - Spondylosis without myelopathy or radiculopathy, lumbar region Coding Level of Care Code Procedure Only Diagnoses Dysfunction of the multifidus muscle of lumbar region M62.85 Lumbar spondylosis M47.816 Low back pain M54.50 CPT Codes Sprint PNS - Sprint PNS Device: Sprint PNS Device ([id number]) Sprint PNS - SPRINT: 24549 - Percutaneous Peripheral Neuroelectrode ([id number])
[2024-05-06 10:51] VITALS: BP 98/69; PULSE 96; O2SAT 98
== END 2024-05-06 11:02 | disposition home or self-care (01) ==
LOC: HO.PMCPRC 09:56
PROVIDERS: PCP Student in an Organized Health Care Education/Training Program; Visit Provider Internal Medicine
DX: M62.85 Dysfunction of the multifidus muscles, lumbar region (principal); M47.816 Spondylosis without myelopathy or radiculopathy, lumbar region; M54.50 Low back pain, unspecified
CPT/HCPCS: 64555

== ENCOUNTER 2024-05-12 09:34 | Outpatient (AMB) | payer OTHER, SELFPAY ==
--- NOTE | 2024-05-12 09:39 | MHC.OFFVIS ---
Vital Signs 05/12/24 09:41 Height 5 ft 6 in Weight 230 lb BMI 37.1 BP 116/67 Blood Pressure Location Lt brachial Position Sitting Respiration 16 Pulse 94 Pulse Source Pulse Oximeter Pulse Oximetry (%) 98 Oxygen Delivery Method Room Air Intake Visit Reasons: s/p left L3 Sprint Allergies No Known Allergies Allergy (Verified 05/12/24 09:42) Medication List - Last Reconciled 05/12/24 by Jerrica Rodríguez LPN bupropion HCl 75 mg PO QAM cetirizine 10 mg PO DAILY PRN hydroxyzine HCl 50 mg PO BEDTIME metformin 1,000 mg PO DAILY sertraline (Zoloft) 25 mg PO DAILY tizanidine 2 mg PO TID PRN trazodone 50 mg PO BEDTIME PRN HPI HPI s/p left L3 Sprint: Details: Lin is here for follow-up following left L3 medial branch nerve stimulator placement. She reports about 50% relief so far. She is happy with the level of relief and was able to completely wash her dishes for the 1st time last week after several months. She is very pleased about that. She has been having some difficulty keeping the leads attached and reviewed steps to help with these issues. Dressing changes have not been a problem. On exam today: Appears afebrile. Alert and oriented. Mood and affect appropriate. Follows and participates in conversation appropriately. Respiratory effort is unlabored. Able to transition from sit to stand unassisted. Ambulates with bilaterally normal heel strike and toe off. Able to stand and walk on toes and heels. Lead insertion site is clean dry and intact. [facility] Medical History (Updated 03/23/24 @ 08:40 by Andreas Baker MD) Lumbar spondylosis Lumbar radicular pain Low back pain Candidal intertrigo Hypercholesterolemia DM type 2 (diabetes mellitus, type 2) HTN (hypertension), benign Arthropathy Anxiety and depression Social History Patient Tobacco Use Status: Current everyday Tobacco user Physical Exam Vital Signs: Last Vital Signs Pulse 94 05/12/24 09:41 Resp 16 05/12/24 09:41 BP 116/67 05/12/24 09:41 Pulse Ox 98 05/12/24 09:41 Oxygen Delivery Method Room Air 05/12/24 09:41 BMI result Body Mass Index 37.1 Assessment & Plan Assessment & Plan (1) Dysfunction of the multifidus muscle of lumbar region: Code(s): M62.85 - Dysfunction of the multifidus muscles, lumbar region Category: Medical (2) Lumbar spondylosis: Code(s): M47.816 - Spondylosis without myelopathy or radiculopathy, lumbar region Category: Medical (3) Low back pain: Code(s): M54.50 - Low back pain, unspecified Category: Medical Plan Reviewed optimization details with stimulation and connections of the lead system. Dressing replaced in the office today. She will follow-up in 7 weeks for lead removal. Coding Level of Care Code Est Pt Level 3 (49707) Diagnoses Dysfunction of the multifidus muscle of lumbar region M62.85 Lumbar spondylosis M47.816 Low back pain M54.50
[2024-05-12 09:41] VITALS: BP 116/67; PULSE 94; RESP 16; O2SAT 98; BMI 37.1
== END 2024-05-12 10:07 | disposition home or self-care (01) ==
PROVIDERS: PCP Student in an Organized Health Care Education/Training Program; Visit Provider Internal Medicine
DX: M62.85 Dysfunction of the multifidus muscles, lumbar region (principal); M47.816 Spondylosis without myelopathy or radiculopathy, lumbar region; M54.50 Low back pain, unspecified
CPT/HCPCS: 99024

== ENCOUNTER → 2024-05-12 09:34 | Outpatient (BNVA) | payer OTHER, SELFPAY | PROVIDERS: PCP Student in an Organized Health Care Education/Training Program; Visit Provider Internal Medicine ==

== ENCOUNTER 2024-05-20 06:16 | Outpatient (REF) | payer OTHER, SELFPAY ==
--- NOTE | ~2024-05-20 | FL_ITS ---
EXAMINATION: FL GUIDANCE ONLY HISTORY: M47.816 - Spondylosis without myelopathy or radiculopathy, lumbar region COMPARISON: None available. TECHNIQUE: Fluoroscopy time: 0.1 minutes. Cumulative Dose: 1.60 mGy. DAP: 0.0104 uGy-m2 (microgray-meter squared). Images: 4. FINDINGS: Multiple fluoroscopic spot films of the lumbar spine were obtained. FL/FL guidance in treatment room IMPRESSION: Fluoroscopy during procedure. Please see procedure report for additional information. Electronically signed by: Robin Saba MD 05/20/2024 02:52 PM JUL[facility]A
== END 2024-05-20 06:17 | disposition home or self-care (01) ==
LOC: CF 06:16
PROVIDERS: Visit Provider Internal Medicine
DX: M47.816 Spondylosis without myelopathy or radiculopathy, lumbar region (principal)
CPT/HCPCS: 64555; C1778; J2003

== ENCOUNTER 2024-05-20 08:47 | Outpatient (AMB) | payer OTHER, SELFPAY ==
--- NOTE | 2024-05-20 08:59 | MHC.OFFVIS ---
Vital Signs 05/20/24 09:00 Height 5 ft 6 in Weight 230 lb BMI 37.1 BP 108/62 Blood Pressure Location Lt brachial Position Sitting Pulse 118 H Pulse Source Pulse Oximeter Pulse Oximetry (%) 100 Oxygen Delivery Method Room Air Intake Visit Reasons: Right L3 Sprint Supervisor Tubing Required: No Allergies No Known Allergies Allergy (Verified 05/20/24 09:00) Medication List - Last Reconciled 05/20/24 by Alley Zacarias, [employer] bupropion HCl 75 mg PO QAM cetirizine 10 mg PO DAILY PRN hydroxyzine HCl 50 mg PO BEDTIME metformin 1,000 mg PO DAILY sertraline (Zoloft) 25 mg PO DAILY tizanidine 2 mg PO TID PRN trazodone 50 mg PO BEDTIME PRN Is last menstrual period known: No (Hysterotomy 2011) Do you need a note to return to daycare/school/sports/work: No HPI HPI Right L3 Sprint: Details: Patient presents for scheduled procedure. Denies any recent cough, cold, infection, fever or other significant changes in medical history since last office visit. [facility] Medical History (Updated 03/23/24 @ 08:40 by Andreas Baker MD) Lumbar spondylosis Lumbar radicular pain Low back pain Candidal intertrigo Hypercholesterolemia DM type 2 (diabetes mellitus, type 2) HTN (hypertension), benign Arthropathy Anxiety and depression Social History Patient Tobacco Use Status: Current everyday Tobacco user Physical Exam Vital Signs: Last Vital Signs Pulse 118 H 05/20/24 09:00 BP 108/62 05/20/24 09:00 Pulse Ox 100 05/20/24 09:00 Oxygen Delivery Method Room Air 05/20/24 09:00 BMI result Body Mass Index 37.1 Office Procedures Details: Lumbar Medial Branch Nerve Stimulation Lead Placement, SPR (Sprint) System, Right L3 ? After the risks, benefits and alternatives were discussed with the patient and informed consent was obtained, patient was placed in the prone position and padded to foster comfort. The skin overlying the lumbosacral spine was prepped and draped in sterile fashion. Fluoroscopy was used to identify the spinous process and lamina in the center of the patient?s region of pain. After identifying and marking the intended target along the course of the medial branch nerve, the skin around the planned entry point and the subcutaneous tissues were injected with lidocaine 1%. An introducer needle and stimulating probe were assembled, inserted and advanced along the intended course of the medial branch nerve as it traverses the lamina medial and inferior to the zygapophyseal joint, taking care to maintain the proper depth of insertion as the introducer is advanced under fluoroscopic guidance. The introducer needle was delivered to a location in proximity to the nerve. Multiple stimulation parameters were used to deliver stimulation to the target medial branch nerve in concert with stimulating at multiple positions around the nerve. Nerve target acquisition was confirmed noting generation of paresthesias in the paravertebral regions corresponding to the level being stimulated. Various electrical parameter combinations were tested, and the lead location was adjusted (physically relocated) until the patient indicated paresthesia/muscle tension overlapping the distribution of the patient?s typical region of pain. The stimulating probe was removed from the introducer and a percutaneous lead was guided through the needle and delivered to a location in similar proximity to the nerve. Final location was verified with electrical stimulation and documented with fluoroscopy. The introducer needle was removed, and the exposed end of the percutaneous lead was attached to an external stimulator unit. Various electrical parameter combinations were again tested until the patient indicated paresthesia or muscle tension overlapping the distribution of the patient?s typical region of pain. After confirming that lead impedance was in the normal range, the external unit was detached, the needle was removed, and the lead was anchored at the skin. The lead was threaded into the connector block and electrical continuity and desired patient response was confirmed. The connector block was attached to the external stimulator unit. The site was covered with a sterile occlusive dressing. The patient was observed for stability of vital signs and comfort. Sprint PNS Device: Sprint PNS Device [id number] Percutaneous Peripheral Neuroelectrode Procedure: 06042 - Percutaneous Peripheral Neuroelectrode Procedure code (CPT) selection complete Office Meds lidocaine HCl 10 mg/mL (1 %) injection solution Performing Provider: Anahi Read APRN, MARKEL Performing Location: [facility] Administered by: Jerrica Rodríguez LPN on 05/20/24 09:42 Dose Route Admin Location Dispensed Lot Number Expiration Date NDC [employer] Basic 50 mg subcut 5 mL Assessment & Plan Assessment & Plan (1) Dysfunction of the multifidus muscle of lumbar region: Code(s): M62.85 - Dysfunction of the multifidus muscles, lumbar region Category: Medical (2) Lumbar spondylosis: Code(s): M47.816 - Spondylosis without myelopathy or radiculopathy, lumbar region Category: Medical (3) Low back pain: Code(s): M54.50 - Low back pain, unspecified Category: Medical Plan Patient is status post temporary right L3 medial branch nerve stimulator placement. Patient tolerated procedure well and was discharged home in stable condition with discharge instructions. All questions were answered. We will follow-up via telephone or in clinic to assess response to therapy. A follow-up appointment was made during today's visit. Orders: Orders AMB Sprint PNS Today M47.816 - Spondylosis without myelopathy or radiculopathy, lumbar region FL guidance in treatment room Today M47.816 - Spondylosis without myelopathy or radiculopathy, lumbar region Coding Level of Care Code Procedure Only Diagnoses Dysfunction of the multifidus muscle of lumbar region M62.85 Lumbar spondylosis M47.816 Low back pain M54.50 CPT Codes Sprint PNS - Sprint PNS Device: Sprint PNS Device ([id number]) Sprint PNS - SPRINT: 54377 - Percutaneous Peripheral Neuroelectrode ([id number]) Implantable Device Implantable Device Implantable Devices Qty [employer] Basic Implant Date Expiration Date Analgesic PENS system 1 [employer] 05/06/24 Analgesic PENS system 1 [employer] 05/20/24 12/10/25
[2024-05-20 09:00] VITALS: BP 108/62; PULSE 118; O2SAT 100; BMI 37.1
== END 2024-05-20 10:05 | disposition home or self-care (01) ==
LOC: HO.PMCPRC 08:47
PROVIDERS: PCP Student in an Organized Health Care Education/Training Program; Visit Provider Internal Medicine
DX: M47.816 Spondylosis without myelopathy or radiculopathy, lumbar region (principal)
CPT/HCPCS: 64555

== ENCOUNTER 2024-05-26 09:16 | Outpatient (AMB) | payer OTHER, SELFPAY ==
--- NOTE | 2024-05-26 09:35 | MHC.OFFVIS ---
Vital Signs 05/26/24 09:36 Height 5 ft 6 in Weight 230 lb BMI 37.1 BP 140/69 H Blood Pressure Location Lt brachial Position Sitting Respiration 16 Pulse 118 H Pulse Source Pulse Oximeter Pulse Oximetry (%) 96 Oxygen Delivery Method Room Air Intake Visit Reasons: s/p right L3 Sprint Clinical Audiologist Required: No Allergies No Known Allergies Allergy (Verified 05/26/24 09:41) Medication List - Last Reconciled 05/26/24 by Jerrica Rodríguez LPN bupropion HCl 75 mg PO QAM cetirizine 10 mg PO DAILY PRN hydroxyzine HCl 50 mg PO BEDTIME metformin 1,000 mg PO DAILY sertraline (Zoloft) 25 mg PO DAILY tizanidine 2 mg PO TID PRN trazodone 50 mg PO BEDTIME PRN HPI HPI s/p right L3 Sprint: Details: History of Present Illness The patient is a 53-year-old female presenting with chronic lumbar back pain. The patient had been experiencing significant back pain which led to the decision to place temporary medial branch nerve stimulators on both sides. The stimulators were placed recently with the objective of alleviating her back pain symptoms. The patient reports a notable improvement in her back pain following the placement of these stimulators and describes her back pain as much better compared to prior visits. There is a slight redness on the skin noted, which she has been advised to monitor for increased redness. The plan involves the removal of the stimulator on the left side in six weeks, followed by the right side two weeks later. Pain Description - Onset: Chronic in nature - Quality and Character: No specific detail provided; implied improvement - Primary Location: Lumbar region - Exacerbating/Relieving Factors: Improvement noted with stimulation - Interference: Previously interfered with functional status, improved with intervention Physical Exam - Skin- Slight redness observed at one of the lead insertions Results Pain Management - Affect: Patient reports feeling good , indicating positive mood and coping - Analgesia: Back pain has improved significantly with current intervention - Adverse Effects: Slight redness on skin, advised to monitor - Activities of Daily Living: Improvement in back pain likely suggests better function - Aberrant Drug Related Behaviors: None reported [facility] Medical History (Updated 03/23/24 @ 08:40 by Andreas Baker MD) Lumbar spondylosis Lumbar radicular pain Low back pain Candidal intertrigo Hypercholesterolemia DM type 2 (diabetes mellitus, type 2) HTN (hypertension), benign Arthropathy Anxiety and depression Social History Patient Tobacco Use Status: Current everyday Tobacco user Physical Exam Vital Signs: Last Vital Signs Pulse 118 H 05/26/24 09:36 Resp 16 05/26/24 09:36 BP 140/69 H 05/26/24 09:36 Pulse Ox 96 05/26/24 09:36 Oxygen Delivery Method Room Air 05/26/24 09:36 BMI result Body Mass Index 37.1 Assessment & Plan Assessment & Plan (1) Dysfunction of the multifidus muscle of lumbar region: Code(s): M62.85 - Dysfunction of the multifidus muscles, lumbar region Category: Medical (2) Lumbar spondylosis: Code(s): M47.816 - Spondylosis without myelopathy or radiculopathy, lumbar region Category: Medical (3) Low back pain: Code(s): M54.50 - Low back pain, unspecified Category: Medical Plan Plan - The patient will continue to monitor the slight redness on the skin; if it worsens, she will send a picture via email. - Removal of the left-side stimulator is scheduled in six weeks, with the right side to follow two weeks later. - Patient will return for follow-up in six weeks. Patient was informed and verbally consented to the use of an ambient scribe for clinic note documentation during this visit. Discussion Notes During the visit, we discussed the positive outcome following the placement of temporary medial branch nerve stimulators, noting considerable improvement in her lumbar back pain. We reviewed the slight redness observed on the skin, advising vigilance and contact if it worsens. Removal of the stimulators is scheduled, with the left side planned to be removed in six weeks and the right side two weeks subsequently. The patient was informed that she can contact me if there are any concerns, such as increased redness around the stimulator sites. Follow-up details were confirmed with the patient, and she understood the plan of care detailed during our discussion. Patient Instructions - Monitor the redness on your skin; if it worsens, send a picture to my email. - Return for stimulator removal in six weeks for the left side, and two weeks later for the right side. - Follow-up appointment scheduled in six weeks. Coding Level of Care Code Est Pt Level 3 (54323) Diagnoses Dysfunction of the multifidus muscle of lumbar region M62.85 Lumbar spondylosis M47.816 Low back pain M54.50
[2024-05-26 09:36] VITALS: BP 140/69; PULSE 118; RESP 16; O2SAT 96; BMI 37.1
== END 2024-05-26 09:48 | disposition home or self-care (01) ==
PROVIDERS: PCP Student in an Organized Health Care Education/Training Program; Visit Provider Internal Medicine
DX: M62.85 Dysfunction of the multifidus muscles, lumbar region (principal); M47.816 Spondylosis without myelopathy or radiculopathy, lumbar region; M54.50 Low back pain, unspecified
CPT/HCPCS: 99024

== ENCOUNTER → 2024-05-26 09:16 | Outpatient (BNVA) | payer OTHER, SELFPAY | PROVIDERS: PCP Student in an Organized Health Care Education/Training Program; Visit Provider Internal Medicine ==

== ENCOUNTER 2024-06-30 09:17 | Outpatient (AMB) | payer OTHER, SELFPAY ==
[2024-06-30 09:22] VITALS: BP 129/73; PULSE 98; RESP 16; O2SAT 99; BMI 37.1
--- NOTE | 2024-06-30 09:22 | A.OFFVIS_ITS ---
Vital Signs 06/30/24 09:22 Height 5 ft 6 in Weight 230 lb BMI 37.1 BP 129/73 Blood Pressure Location Lt brachial Position Sitting Respiration 16 Pulse 98 Pulse Source Pulse Oximeter Pulse Oximetry (%) 99 Oxygen Delivery Method Room Air Intake Visit Reasons: Left Sprint removal Curator Herbarium Required: No Allergies No Known Allergies Allergy (Verified 06/30/24 09:22) Medication List - Last Reconciled 06/30/24 by Jerrica Rodríguez LPN bupropion HCl 75 mg PO QAM cetirizine 10 mg PO DAILY PRN hydroxyzine HCl 50 mg PO BEDTIME metformin 1,000 mg PO DAILY sertraline (Zoloft) 25 mg PO DAILY tizanidine 2 mg PO TID PRN trazodone 50 mg PO BEDTIME PRN HPI HPI Left Sprint removal: Details: History of Present Illness The patient is a 54-year-old female presenting with lumbar pain, excessive sleepiness, and associated challenges impacting daily life. The lumbar pain was managed with peripheral nerve stimulation, improving symptoms significantly on the left side while continuing treatment on the right. Excessive sleepiness raises suspicion of narcolepsy, pending further evaluation via lumbar puncture, although AMBER has been ruled out as a current cause. In addition, recent viral exposure in a hospital environment is noted, contributing transient flu-like symptoms, but without escalating to significant illness or transmission to relatives. Pain Description - Pain Location: Lumbar region - Onset: Persistent - Quality: Manageable; improved on left side post-treatment - Radiation: Not discussed - Exacerbating Factors: Unclear - Relieving Factors: Peripheral nerve stimulation on the left lumbar medial branch Physical Exam Results - Diagnostic Tests: Pending lumbar puncture for evaluating narcolepsy - AMBER: Ruled out through prior testing Pain Management - Affect: Positive mood with noticeable back pain improvement - Analgesia: Temporary peripheral nerve stimulation yielded significant relief on the left side; ongoing treatment on the right - Adverse Effects: None reported - Activities of Daily Living: Limited by excessive daytime sleepiness affecting job performance and driving safety - Aberrant Drug Related Behaviors: None indicated [facility] Medical History (Updated 03/23/24 @ 08:40 by Andreas Baker MD) Lumbar spondylosis Lumbar radicular pain Low back pain Candidal intertrigo Hypercholesterolemia DM type 2 (diabetes mellitus, type 2) HTN (hypertension), benign Arthropathy Anxiety and depression Social History Patient Tobacco Use Status: Current everyday Tobacco user Physical Exam Vital Signs: Last Vital Signs Pulse 98 06/30/24 09:22 Resp 16 06/30/24 09:22 BP 129/73 06/30/24 09:22 Pulse Ox 99 06/30/24 09:22 Oxygen Delivery Method Room Air 06/30/24 09:22 BMI result Body Mass Index 37.1 Assessment & Plan Assessment & Plan (1) Dysfunction of the multifidus muscle of lumbar region: Code(s): M62.85 - Dysfunction of the multifidus muscles, lumbar region Category: Medical Plan Plan Management of the patient's lumbar pain through peripheral nerve stimulation has yielded positive results for the left side, with treatment continuing on the right. Excessive sleepiness necessitates further investigation through diagnostic lumbar puncture for narcolepsy, as AMBER has been excluded. Vigilant assessment of sleep impacts and potential viral symptoms is imperative in her future treatments, aligning functional goals with treatment improvements. Patient was informed and verbally consented to the use of an ambient scribe for clinic note documentation during this visit. Discussion Notes We discussed the effectiveness of the lumbar medial branch peripheral nerve stimulation, noting significant analgesic benefit on the left side, and continuation on the right. We reviewed the potential sleep disorders, including narcolepsy, pending further evaluation through lumbar puncture tests. AMBER was ruled out, and we considered the impact of excessive sleepiness on her daily activities, like driving. Viral exposure and symptomatic management were acknowledged, although specific follow-up testing was not delineated. We agreed on the importance of monitoring her condition closely to optimize treatment outcomes and functioning. Patient Instructions - Continue with the current treatment for right lumbar pain. - Expect follow-up regarding lumbar puncture scheduling for further sleep disorder evaluation. - Stay vigilant for any worsening of symptoms related to viral exposure. - Avoid activities such as driving if excessive sleepiness persists. - Plan to revisit in two weeks for ongoing assessment and adjustment of treatment. Coding Level of Care Code Est Pt Level 3 (90716) Diagnoses Dysfunction of the multifidus muscle of lumbar region M62.85
--- OUTSIDE RECORDS SUMMARY | 2024-06-30 10:21 | XMS_ITS | Encounter Summary ---
Author Organization [employer] Address [address] [place] [address] [address] [place] [address] Care Team Providers Care School Library Media Program Director Name Role Phone Kristin Rivera MD Primary Care Provider [phone] Encounter Details Date Type Department Care Team (Latest Contact Info) Description 09/14/2018 Abstract [facility] CONVERSIONS Dental, Provider, DDS Social History Tobacco Use Types Packs/Day Years Used Date Smoking Tobacco: Never Assessed Comments Unknown Sex and Gender Information Value Date Recorded Sex Assigned at Female 02/25/2022 10:32 AM EDT Legal Sex Female 10:32 AM EDT Gender Identity Female 12/05/2022 10:27 AM EDT Sexual Orientation Lesbian 12/05/2022 10 :27 AM EDT documented as of this encounter Plan of Treatment Upcoming Encounters Date Type Department Care Team (Late st Contact Info) Description 07/13/2024 11:30 AM EDT Telemedicine [facility] MED & PEDS [address] [place] [address] Kristin Rivera MD [address] [place] [address] documented as of this encounter Visit Diagnoses Not on filedocumented in this encounter Care Teams School Library Media Program Director Relationship Specialty Start Date End Date Kristin Rivera MD [address] [place] [id number] PCP - General Family Medicine 01/17/17 documented as of this encounter
--- OUTSIDE RECORDS SUMMARY | 2024-06-30 10:21 | XMS_ITS | Encounter Summary ---
Author Organization [employer] Address [address] [place] [address] Care Team Providers Care Acid Tester Name Role Phone Kristin Rivera MD Primary Care Provider [phone] Reason for Visit * Reason Onset Date Comments Nurse Triage 11/03/2023 Encounter Details Date Type Department Care Team (Late st Contact Info) Description 11/03/2023 Telephone [facility] [address] [place] [address] Kristin Rivera MD [address] [place] [address] Nurse Triage Social History Tobacco Use Types Packs/Day Years Used Date Smoking Tobacco: Every Day Cigarettes 0.5 35 Smokeless Tobacco: Never Alcohol Use Standard Drinks/Week Comments Never 0 (1 standard drink = 0.6 oz pur e alcohol) Depression Answer Date Recorded Patient Health Questionnaire-9 Score 22 12/05/2022 Housing Stability Answer Date Recorded What is your housing situation today? I have tsering sing 02/02/[address] you li ve. Do you have problems with any of the following? No or not working smoke detectors 02/02/2023 Food Insecurity Answer Date Recorded Within the past 12 months, y ou worried that your food would run out before you got money to buy more: Never True 03/03/2023 Within the past 12 months,th e food you bought just didn't last and you didn't have enough money to get more: Never True 09/2022 Transportation Answer Date Recorded In the past 12 months, has l ack of transportation kept you from medical appts, meetings, work or from getting things needed for daily living? No 03/03/2023 Utilities Answer Date Recorded In the past 12 months, has t he electric, gas, oil or water company threatened to shut off services in your home? No 03/03/2023 Depression Answer Date Recorded Patient Health Questionnaire-2 Score 6 12/05/2022 Comments Unknown Sex and Gender Information Value Date Recorded Sex Assigned at Female 02/25/2022 10:32 AM EDT Legal Sex Female 10:32 AM EDT Gender Identity Female 12/05/2022 10:27 AM EDT Sexual Orientation Lesbian 12/05/2022 10 :27 AM EDT documented as of this encounter Miscellaneous Notes * Telephone Encounter - Layla Wynn RN - 11/03/2023 4:11 PM EDT Triage call Pt reports difficulty sleeping. Chronic problem for last two years. Pt is able to fall asleep but, only fstays asleep for about 15 min at a time consistently every night. Pt has tried Melatonin, white sound , reading, and numerouis other things without effect. Pt has spoken with PCP about this before and would like to see PCP In [place] again. Pt is aware of missing last apt. 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 All home care advised has been implemented already. ASK with Dr. Rivera 11/17/23 @ 775a. Insurance is verified as active prior to booking. Pt agrees with disposition. Protocol Used: Insomnia (Adult) Care Advice Discussed: * Reassurance and Education - Dfficulty Sleeping * Tips for Good Sleep * Tips for Good Sleep - Your Bedroom * Tips for Good Sleep - When You Can't Fall Asleep * Tips for Good Sleep - When Worrying Keeps You Awake * Tips for Good Sleep - What To Avoid * How Much Sleep Is Enough? * Reasons To Call Back - Insomnia symptoms persist over 2 weeks - You become worse * Telephone Encounter - Jluis Garcia - 11/03/2023 3:51 PM EDT Symptom: Sleeping Difficulty Outcome: Schedule an appointment to be seen within 24 hours Reason: This is the only possible outcome for this symptom documented in this encounter Plan of Treatment Upcoming Encounters Date Type Department Care Team (Late st Contact Info) Description 07/13/2024 11:30 AM EDT Telemedicine [facility] MED & PEDS [address] [place] [address] Kristin Rivera MD [address] [place] [address] documented as of this encounter Visit Diagnoses Not on filedocumented in this encounter Additional Health Concerns Assessment Noted Time PHQ-9 Depression Total Score: 22 023 11:16 AM EDT documented as of this encounter Care Teams Acid Tester Relationship Specialty Start Date End Date Kristin Rivera MD [address] [place] [address] PCP - General Family Medicine 01/17/17 documented as of this encounter
--- OUTSIDE RECORDS SUMMARY | 2024-06-30 10:21 | XMS_ITS | Clinical Summary ---
Author Organization [employer] Address [address] [facility] [address] [place] [address] Care Team Providers Care Heating Systems Installer Name Role Phone Kristin Rivera MD Primary Care Provider [phone] Allergies No known active allergies Medications * This document contains information received from the source organization and may not represent a complete record from that organization. acetaminophen (Tylenol) 500 MG tablet Take 2 tablets by mouth every 6 (six) hours if needed. 10/13/19 22 Active cholecalciferol (Vitamin D-3) 25 MCG (1000 UT) tablet Take 1 tablet by mouth 1 (one) time each day. 12/14/19 20 Active clotrimazole (Lotrimin) 1 % vaginal cream Insert 1 applicator into the vagina in the evening. 1 applicator at bedtime prn vagina for 7 nights Active varenicline (Chantix) 1 MG tabletIndication s:Mild intermittent asthma without complication TAKE 1 TABLET BY MOUTH 2 TIMES DAILY. TAKE WITH FULL GLASS OF WATER. 30 tablet 11 07/27/19 23 Active pantoprazole (ProtoNix) 40 MG EC tabletIndication s:Gastroesophage al reflux disease without esophagitis TAKE 1 TABLET BY MOUTH BEFORE BREAKFAST 90 tablet 11 08/02/19 23 Active Lancets misc Check sugars BID 100 each 3 12/06/19 23 Active cetirizine (ZyrTEC) 10 MG tabletIndication s:Mild intermittent asthma without complication TAKE 1 TABLET BY MOUTH EVERY DAY 90 tablet 3 06/05/19 24 Active FREESTYLE LITE test strip Use to test blood sugar 2 times daily 100 each 12 07/07/19 24 025 Active Blood Glucose Monitoring Suppl (FreeStyle Surry Lite) w/Device kit Use to test blood sugar 2 times daily 1 kit 07/07/19 Active albuterol 108 (90 Base) MCG/ACT inhalerIndicatio ns:Mild intermittent asthma without complication INHALE 2 PUFFS EVERY 4 HOURS IF NEEDED FOR WHEEZING. 8.5 g 11 10/17/19 24 Active Alcohol Swabs (Alcohol Prep) 70 % pads USE TO TEST BLOOD SUGAR 2 TIMES DAILY 100 each 3 12/18/19 24 Active triamcinolone (Nasacort) 55 MCG/ACT nasal inhalerIndicatio ns:Allergy, subsequent encounter USE 2 SPRAYS INTO EACH NOSTRIL TWICE A DAY 16.9 mL 3 03/22/20 24 Active metFORMIN (Glucophage) 1000 MG tablet Take 1 tablet (1,000 mg) by mouth with breakfast. 90 tablet 3 04/07/20 24 025 Active buPROPion (Wellbutrin) 75 MG tablet Take 1 tablet (75 mg) by mouth Once per day. 30 tablet 3 04/07/20 24 Active SUMAtriptan (Imitrex) 25 MG tablet TAKE 1 TABLET BY MOUTH IF NEEDED FOR MIGRAINE. MAY REPEAT DOSE IN 2 HOURS IF NO RELIEF. MAX 2 HR 9 tablet 6 04/27/20 24 Active zolpidem (Ambien) 10 MG tablet Take 10 mg by mouth at bedtime. 06/10/19 25 Active traZODone (Desyrel) 50 MG tablet Take 0.5 tablets (25 mg) by mouth at bedtime. 15 tablet 2 05/10/19 25 025 Discontinued amoxicillin (Amoxil) 500 MG capsule Take 4 capsules (2,000 mg) by mouth 1 (one) time for 1 dose. 4 capsule 2 06/15/19 25 025 Active Problems Problem Noted Date Diagnosed Date Narcolepsy due to underlying condition with jyoti dowling 11/18/2023 Assessment & Plan (11/18/2023 6:31 AM EDT): Will refer urgently to sleep medicine at [facility] Pt is experiencing unsafe situations and risk of harm to self and others Recommend that she not drive while this fatigued Sleep hygiene and trying to take something that is natural (tea, valerian, lavender) to help with sleep at nighttime Acute nonintractable headache 06/30/2023 Assessment & Plan (06/30/2023 4:51 PM EST): It seems to be migraine MCDOWELL, has some tender points. Reccommended rest at home, out work tomorrow. Recommended tighter control of DM, fu with PCP in 3-4w max Rx Fioricet tid max x 3d, if no improvement of sxs, needs ED evaluation If she has any neurological deficit, she will go to ED Advised against driving while she has MCDOWELL. Her daughter will pick her up today. Anxiety 12/12/2022 Other insomnia 09/10/2022 Assessment & Plan (09/10/2022 11:02 AM EDT): Will start on trazodone, side effects discussed, lifestyle modifications were discussed Mild intermittent asthma without complication Candidal intertrigo 09/19/2017 Arthropathy 01/17/2017 Benign hypertension 01/17/2017 Assessment & Plan (11/18/2023 6:35 AM EDT): At goal today in office Hypercholesterolemia 01/17/2017 Severe episode of recurrent major depressive disorder, without psychotic features 01/17/2017 Assessment & Plan (11/18/2023 6:37 AM EDT): Recommend restarting Zoloft as untreated depression and anxiety could be contributing to poor sleep Assessment & Plan (12/31/2022 3:06 PM EDT): Assessment: ?? Patient with increasing depression??(depressed mood, anhedonia, sleep disturbance, low motivation, poor appetite, feelings of guilt, difficulty concentrating, restlessness, irritability)??and??Anxiety??(difficult to control anxiousness in social settings with periods in which she becomes cold and starts to sweat, racing thoughts). Symptoms are in the context of bio-psychosocial stressors of sharing a car, long work hours and decreased contact with her grandchildren and her dog who are her protective factors. Patient declined previous referral to [facility] and requested a new referral for OP therapy. ?? At this time Lin Rodriguez meets criteria for Visit Diagnoses: Problem List Items Addressed This Visit ? Other ?? Severe episode of recurrent major depressive disorder, without psychotic features (CMS/HCC) ?? Anxiety ?? Patient ready to address current needs Yes ?? Strengths-Lin has a supportive family and she is in the action stage of change. ?? PLAN: 1. Follow up with [facility]: Recommended for follow-up: As needed 2. Patient goal is??to explore coping mechanisms and decrease depression and anxiety symptoms 3. Behavioral Recommendations 4. 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 Journaling?? Assessment & Plan (12/12/2022 4:30 PM EDT): Assessment: Patient with history of depression (depressed mood, anhedonia, sleep disturbance, low motivation, poor appetite, feelings of guilt, difficulty concentrating, restlessness, irritability) and Anxiety (difficult to control anxiousness in social settings with periods in which she becomes cold and starts to sweat, racing thoughts). (Symptoms are in the context of bio-psychosocial stressors of trauma in childhood, being out of work, financial insecurity, and relationship stress. Patient will benefit from additional coping mechanisms and OP therapy. At this time Lin Rodriguez meets criteria for Visit Diagnoses: Problem List Items Addressed This Visit Other Severe episode of recurrent major depressive disorder, without psychotic features (CMS/HCC) Anxiety Patient ready to address current needs Yes Strengths- Lin has a supportive family and she is in the action stage of change. PLAN: 1. Follow up with [facility]: Not recommended for follow-up 2. Patient goal is to explore coping mechanisms and decrease depression and anxiety symptoms 3. Behavioral Recommendations a. 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 Journaling Type 2 diabetes mellitus without complication Assessment & Plan (11/18/2023 6:36 AM EDT): Recommend that she restart her Metformin, her untreated DM2 and rising blood sugars pose a danger to her health as well as the insomnia Assessment & Plan (06/30/2023 4:48 PM EST): Uncontrolled today, likely triggering MCDOWELL. Encouraged to take metformin as soon as she an tolerate PO Recommended increase PO hydration and fu with PCP Encounters Date Type Department Care Team Description 06/15/2024 11:15 AM EST Telemedicine [facility] [address] [facility] [place] [address] Kristin Rivera MD Other insomnia (Primary Dx) 06/15/2024 Travel 05/23/2024 Refill [facility] [address] [place] [address] Balwinder Maloney MD Insomnia, unspecified type 05/10/2024 8:45 AM EST Telemedicine [facility] [address] [place] [address] Kristin Rivera MD Type 2 diabetes mellitus without complication, without long-term current use of insulin (CMS/HCC) (Primary Dx); Other insomnia 05/10/2024 Travel 04/29/2024 Refill [facility] [address] [facility] [place] [address] Kristin Rivera MD Vaginal itching 04/24/2024 Refill [facility] [address] [facility] [place] [address] Kristin Rivera MD 04/09/2024 Telephone [facility] [address] [facility] [place] [address] Kristin Rivera MD recall appt 04/07/2024 8:30 AM EST Office Visit [facility] [address] [place] [address] Kristin Rivera MD Other insomnia (Primary Dx); Type 2 diabetes mellitus without complication, without long-term current use of insulin (CMS/HCC); Encounter for immunization; Benign hypertension; Encounter for annual wellness visit 04/07/2024 Travel from Last 3 Months Immunizations Name Administration Dates Next Due Influenza Injectable Quadriv alant Preservative Free IIV4 MDCK 02/10/2020 Influenza injectable quadriv alent IIV4 with preservative 03/16/2018 Influenza injectable quadriv alent preservative free 02/15/2022,03/03/2021 Influenza, seasonal, injecta ble, preservative free 04/07/2024 Moderna Covid-19 Vaccine 12+ 03/03/2021,08/26/19 21,07/28/2020 Pfizer Covid-19 Vaccine 12+ 04/07/2024 TD (adult), 2 Lf tetanus tox oid, preservative free, adsorbed 05/21/2018,03/16/2018 Tdap 06/16/2007 Social History Tobacco Use Types Packs/Day Years Used Date Smoking Tobacco: Every Day Cigarettes 0.5 35 Smokeless Tobacco: Never Tobacco Cessation:Ready to Q uit: Not Asked; Counseling Given: Not Answered Alcohol Use Standard Drinks/Week Comments Never 0 (1 standard drink = 0.6 oz pur e alcohol) Depression Answer Date Recorded Patient Health Questionnaire-9 Score 22 04/07/2024 Patient Health Questionnaire-9 Score 22 04/07/2024 Last PHQ-9: Questionnaire Data Not on file 1 06/08/2023 Housing Stability Answer Date Recorded What is your housing situation today? I have tseringlucinda coello 04/07/[address] you li ve. Do you have problems with any of the following? None of the above 04/07/2024 Food Insecurity Answer Date Recorded Within the past 12 months, y ou worried that your food would run out before you got money to buy more: Never True 04/07/2024 Within the past 12 months,th e food you bought just didn't last and you didn't have enough money to get more: Never True 02/2024 Transportation Answer Date Recorded In the past 12 months, has l ack of transportation kept you from medical appts, meetings, work or from getting things needed for daily living? No 04/07/2024 Utilities Answer Date Recorded In the past 12 months, has t he electric, gas, oil or water company threatened to shut off services in your home? No 04/07/2024 Depression Answer Date Recorded Patient Health Questionnaire-2 Score 6 04/07/2024 Internet Access Answer Date Recorded Internet Access Q1 No 04/07/2024 Internet Access Q2 I do not want or need it 03/28 Comments No Sex and Gender Information Value Date Recorded Sex Assigned at Female 02/25/2022 10:32 AM EDT Legal Sex Female 10:32 AM EDT Gender Identity Female 12/05/2022 10:27 AM EDT Sexual Orientation Lesbian 12/05/2022 10 :27 AM EDT Last Filed Vital Signs Vital Sign Reading Time Taken Comments Blood Pressure 128/79 04/07/2024 8:43 AM EST Pulse 92 04/07/2024 8:43 AM EST Temperature 36.2 ??C (97.1 ??F) 04/07/2024 8:[address] Respiratory Rate 18 04/07/2024 8:43 AM EST Oxygen Saturation 96% 07/07/2023 10:45 AM EDT Inhaled Oxygen Concentration - - Weight 101 kg (222 lb) 04/07/2024 8:43 AM EST Height 167.6 cm (5' 6 ) 04/07/2024 8:43 AM EST Body Mass Index 35.83 04/07/2024 8:43 AM EST Plan of Treatment Upcoming Encounters Date Type Department Care Team (Late st Contact Info) Description 07/13/2024 11:30 AM EDT Telemedicine [facility] [address] [place] [address] Kristin Rivera MD [address] [place] [address] Health Maintenance Due Date Last Done Comments CT Colonography 1971 Colonoscopy 1971 FIT DNA/Cologuard 1971 FIT 1971 HIV Screening 1971 Sigmoidoscopy 1971 Diabetes: Foot Exam 1981 Eye Exam 1981 Hepatitis C Screening 1989 Diabetes: Urine Protein Screening 1990 Hepatitis B Vaccines (1 of 3 - 19+ 3-dose series) 1990 Pneumococcal Vaccine: 50+ Years (1 of 2 - PCV) 1990 Colorectal Cancer Screening 11/11/2020 FOBT 11/11/2020 11/12/2019 Zoster Vaccines (1 of 2) 2021 Mammogram 06/07/2024 06/07/2023, 04/17/2018 Diabetes: Hemoglobin A1C 08/04/2024 025, 04/07/2024, 11/17/2023, Additional history exists Depression Monitoring (PHQ-9) 10/06/2024 04/07/2024, 04/07/2024 Alcohol/Substance Use Screening 04/07/2025 04/07/2024 Depression Screening 04/07/2025 04/07/2024, 04/07/20 SDOH Screening 04/07/2025 04/07/2024 Lipid Panel 05/06/2025 05/06/2024, 04/28, 01/16/2021 Tobacco Screening 06/15/2025 06/15/2024 DTaP/Tdap/Td Vaccines (4 - Td or Tdap) 05/21/2028 05/21/2018, 03/16/2018, 06/16/2007 RSV Patients and Patients Aged 60 years or older (1 - 1-dose 75+ series) 2046 COVID-19 Vaccine Completed 04/07/2024, , 02/15/2022, Additional history exists Influenza Vaccine Completed 04/07/2024, , 03/03/2021, Additional history exists HIB Vaccines Aged Out No longer eligi ble based on patient's age to complete this topic HPV Vaccines Aged Out No longer eligi ble based on patient's age to complete this topic Hepatitis A Vaccines Aged Out No long er eligible based on patient's age to complete this topic IPV Vaccines Aged Out No longer eligi ble based on patient's age to complete this topic Meningococcal Vaccine Aged Out No charo luda eligible based on patient's age to complete this topic RSV under 20 months Aged Out No longe r eligible based on patient's age to complete this topic Rotavirus Vaccines Aged Out No longer eligible based on patient's age to complete this topic Procedures Procedure Name Priority Date/Time Associated Diagnosis Comments HEMOGLOBIN A1C Routine 05/06/2024 8:34 AM EST Type 2 diabetes mellitus without complication, without long-term current use of insulin (CMS/HCC) HEPATIC FUNCTION PANEL Routine 8:34 AM EST Type 2 diabetes mellitus without complication, without long-term current use of insulin (CMS/HCC) LIPID PANEL, STANDARD Routine 05/06/2024 8:34 AM EST Type 2 diabetes mellitus without complication, without long-term current use of insulin (CMS/HCC) BASIC METABOLIC PANEL Routine 05/06/2024 8:34 AM EST Type 2 diabetes mellitus without complication, without long-term current use of insulin ([facility]) POCT GLYCATED HEMOGLOBIN, TOTAL Routine 04/07/2024 8:55 AM EST Type 2 diabetes mellitus without complication, without long-term current use of insulin ([facility]) POCT GLUCOSE Routine 04/07/2024 8:54 AM EST Type 2 diabetes mellitus without complication, without long-term current use of insulin ([facility]) BI MAMMOGRAM SCREENING TOMOSYNTHESIS BILATERAL Routine 06/07/2023 7:40 AM EST OCCULT BLOOD, FECAL, IMMUNOASSAY Routine 11/12/2019 7:03 PM EDT from Last 3 Months or Most Recently Relevant to Health Maintenance Results * (ABNORMAL) Hemoglobin A1c (05/06/2024 8:34 AM EST) Hemoglobin A1c 9.2(H) <6.0 % [facility] Comment:Hemoglobin A1C Refer ence Range Adults: 4.8 - 6.0 % Non diabetic: < 6.0 % Goal: < 7.0 %Additional Action Suggested: > 8.0 %Note: Hemoglobin A1c results are invalid for patients with abnormal amounts of HbF. Blood transfusions may impact the HbA1c concentration in the patient sample. Estimated Average Glucose 217 mg/dL [facility] Comment:eAG = Estimated ave rage glucose which is %A1C expressed asaverage glucose, using the formula of the Z4X-UbhzgyzYffiqol Glucose study (ADAG), Diabetes Care, Vol.31,#8,Nov. 2007 Blood Venous blood specimen / Unknown 05/06/2024 8:34 AM EST 05/06/2024 2:07 PM EST us Kristin Rivera MD LAB BLOOD ORDERABLES Final Resul t [facility] [address] [place] [phone] * Hepatic Function Panel (05/06/2024 8:34 AM EST) Bilirubin, Total 0.4 0.0 - 1.0 mg/dL [facility] Bilirubin, Direct 0.2 0.0 - 0.5 mg/dL [facility] Aspartate Amino Transferase 24 5 - 31 U/L [facility] Alanine Aminotransferase 20 0 - 31 U/L [facility] Total Protein 7.0 6.5 - 8.0 g/dL [facility] Albumin Level 3.8 3.5 - 5.0 g/dL [facility] Alkaline Phosphatase 91 39 - 117 U/L [facility] Blood Venous blood specimen / Unknown 05/06/2024 8:34 AM EST 05/06/2024 2:07 PM EST us Kristin Rivera MD LAB BLOOD ORDERABLES Final Resul t [facility] [address] [place] [phone] [phone] * (ABNORMAL) Lipid Panel, Standard (05/06/2024 8:34 AM EST) Triglycerides 163(H) <150 mg/dL [facility] Comment:Slight Lipemia.Courtney able Triglyceride: less than 150 mg/dLBorderline High Triglyceride 150-199 mg/dLHigh Triglyceride: 200-499 mg/dLVery High Triglyceride: greater than or equal to 5OO mg/dL Cholesterol 292(H) <200 mg/dL [facility] Comment:Desirable Cholestero l: less than 200 mg/dLBorderline High Cholesterol: 200-239 mg/dLHigh Cholesterol: greater than 239 mg/dL LDL Cholesterol Calculated 193(H) <100 mg/dL [facility] Comment:Desirable LDL: less than 100 mg/dLNear Optimal/Above Optimal LDL: 110- 129 mg/dLBorderline High LDL: 130-159 mg/dLHigh LDL: 160-189 mg/dLVery High LDL: greater than or equal to 190 mg/dL HDL Cholesterol 67 >40 mg/dL [facility] Comment:Desirable HDL: great er than 40 mg/dL Note: This HDL assay may give artificially low results in patients with liver disease. Blood Venous blood specimen / Unknown 05/06/2024 8:34 AM EST 05/06/2024 2:07 PM EST Kristin Rivera MD LAB BLOOD ORDERABLES Final Resul t Performing Organization Address [facility] Co de Phone Number [facility] [address] [place] [phone] * (ABNORMAL) Basic Metabolic Panel (05/06/2024 8:34 AM EST) Sodium 141 135 - 145 mmol/L [facility] Potassium 4.2 3.3 - 5.1 mmol/L [facility] Chloride 103 96 - 108 mmol/L [facility] Carbon Dioxide 29 22 - 29 mmol/L [facility] Anion Gap 13 12 - 20 [facility] Urea Nitrogen (BUN) 12 9 - 16 mg/dL [facility] Creatinine, Serum 0.73 0.5 - 1.4 mg/dL [facility] Estimated Glomerular Filt Rate >60 [facility] Comment:Chronic Kidney Disea se: Estimated GFR < 60 mL/min/1.56o9Appayt Kidney Disease: Estimated GFR < 15 mL/min/1.73m2 Glucose 132(H) 60 - 115 mg/dL [facility] Calcium 9.3 8.4 - 10.2 mg/dL [facility] Blood Venous blood specimen / Unknown 05/06/2024 8:34 AM EST 05/06/2024 2:07 PM EST Kristin Rivera MD LAB BLOOD ORDERABLES Final Resul t Performing Organization Address [facility] Co de Phone Number [facility] [address] [place] [phone] * (ABNORMAL) POCT HGB A1C (04/07/2024 8:55 AM EST) Hemoglobin A1C 10.0(A) 4.0 - 6.0 % QC Media Lot # [id number] Lot# Expiration Date [id number] Blood 04/07/2024 8:55 AM EST Kristin Rivera MD POINT OF CARE TEST ENTER/EDIT OR DERABLES Final Result * (ABNORMAL) POCT Glucose (04/07/2024 8:54 AM EST) Glucose Blood, POC 219(A) 60 - 200 mg/dL QC Media Lot # [id number] Lot# Expiration Date [id number] Blood Capillary blood specimen / Unknown 04/07/2024 8:54 AM EST Kristin Rivera MD POINT OF CARE TEST ENTER/EDIT OR DERABLES Final Result * BI Mammogram Screening Tomosynthesis Bilateral (06/07/2023 7:40 AM EST) Anatomical Region Laterality Modality Breast Bilateral Mammography 06/07/2023 7:40 AM EST Narrative 06/21/2023 1:22 PM EST ? [facility] ? [address] ?[place] [id number] ? Mammography Report ? Signed ? Patient: Michael,Lin ?MR#: [id number] ?? 50 ? : 1970 ?Acct:[id number] ? Age/Sex: 52 / F ?ADM Date: 02/10/24 ? Loc: HO.MAMMO ? Attending Dr: Kristin Rivera MD ? Ordering Physician: Nicole,Kristin Moncada MD ?Results: 1Negati ?? ve ? Date of Service: 06/07/23 ?Follow Up: 1 Year From Orig ?? inal Mammogram ? Procedure(s): MM tomosynthesis screening BI ?? Accession Number(s): [id number] ? cc: Kristin Rivera MD ? EXAMINATION: ?? MM SCREENING DIGITAL BREAST TOMOSYNTHESIS, BILATERAL ? CLINICAL INFORMATION: ? Screening. Asymptomatic. ? COMPARISON: ?? Mammography: This study is compared with prior exams dating back to ?? 2018. ? TECHNIQUE: ?? Digital breast tomosynthesis is performed in both the craniocaudal and ?? mediolateral oblique views along with computer-aided detection (CAD). ?? Synthesized 2D images are generated from the tomosynthesis. ? FINDINGS: ?? The breasts are almost entirely fatty (ACR BI-RADS breast composition ?? Category a). ? There are no significant masses, abnormal calcifications, or other ?? abnormalities. ? MM/MM tomosynthesis screening BI ?? IMPRESSION: ?? No mammographic evidence of malignancy. ? ASSESSMENT: ? BI-RADS BI-RADS 1 - Negative ? RECOMMENDATION: ?? Routine annual mammography screening. ? 1 year F/U ? This examination should not preclude the clinical evaluation of a ?? suspicious palpable abnormality. ? This patient's information was entered into a reminder system with a ?? target due date for their next mammogram. ? Dictated By: ?Amanda Reardon MD ? Signed By: ?<Electronically signed by Amanda Reardon MD in OV> ? 06/21/231317 ? DD/ 0740 ? TD/TT: ? Gelatin Dynamite Packing Operator: ? Procedure Note Jaime, Image - 06/21/2023 [facility] [address] [place], [place] [address] Mammography Report Signed Patient: Lin RodriguezMR#: [id number] 50 : 1970Acct:[id number] Age/Sex: 52 / FADM Date: 06/07/23 Loc: HO.MAMMO Attending Dr: Kristin Rivera MD Ordering Physician: Kristin Rivera MDResults: 1Negati ve Date of Service: 06/07/23Follow Up: 1 Year From Orig inal Mammogram Procedure(s): MM tomosynthesis screening BI Accession Number(s): [id number] cc: Kristin Rivera MD EXAMINATION: MM SCREENING DIGITAL BREAST TOMOSYNTHESIS, BILATERAL CLINICAL INFORMATION: Screening. Asymptomatic. COMPARISON: Mammography: This study is compared with prior exams dating back to 2018. TECHNIQUE: Digital breast tomosynthesis is performed in both the craniocaudal and mediolateral oblique views along with computer-aided detection (CAD). Synthesized 2D images are generated from the tomosynthesis. FINDINGS: The breasts are almost entirely fatty (ACR BI-RADS breast composition Category a). There are no significant masses, abnormal calcifications, or other abnormalities. MM/MM tomosynthesis screening BI IMPRESSION: No mammographic evidence of malignancy. ASSESSMENT: BI-RADS BI-RADS 1 - Negative RECOMMENDATION: Routine annual mammography screening. 1 year F/U This examination should not preclude the clinical evaluation of a suspicious palpable abnormality. This patient's information was entered into a reminder system with a target due date for their next mammogram. Dictated By: Amanda Reardon MD Signed By: <Electronically signed by Amanda Reardon MD in OV> 06/21/23 1318 DD/ 0740 TD/TT: Gelatin Dynamite Packing Operator: Kristin Rivera MD IMG BI PROCEDURES Edited Result - Final * (ABNORMAL) OCCULT BLOOD STOOL (11/12/2019 7:03 PM EDT) OCCULT BLOOD STOOL POS(AA) NEG [facility] 11/12/2019 7:03 PM EDT us Historical Provider LAB BODY FLUIDS AND STOOL S ORDERABLES Final Result [facility] [address] from Last 3 Months or Most Recently Relevant to Health Maintenance Insurance , [address] [place] [address] * Guarantor: Lin Rodriguez Account Type Relation to Patient Date of Phone Billing Address Personal/Family Self [address] [place] Care Teams Heating Systems Installer Relationship Specialty Start Date End Date Kristin Rivera MD [address] [place], [place] [address] PCP - General Family Medicine 01/17/17
--- OUTSIDE RECORDS SUMMARY | 2024-06-30 10:21 | XMS_ITS | Encounter Summary ---
Author Organization [employer] Address 75 [facility] 7t [place] [address] Care Team Providers Care Food Service Sales Representatives Name Role Phone Kristin Rivera MD Primary Care Provider [phone] Reason for Visit * Reason Onset Date Comments Request For Order(s) 05/09/2023 Encounter Details Date Type Department Care Team ([facility] Contact Info) Description 05/09/2023 Telephone [facility] MED & PEDS [address] [place] [address] Kristin Rivera MD [address] [place] [address] Request For Order(s) Social History Tobacco Use Types Packs/Day Years [...] encounter Miscellaneous Notes * Telephone Encounter - Shira Ruiz RN - 05/13/2023 11:18 AM EST Noted. Thank you * Telephone Encounter - Kristin Rivera MD - 05/13/2023 11:07 AM EST Sent * Telephone Encounter - Shira Ruiz RN - 05/13/2023 9:33 AM EST Please review message below and advise. Pt is requesting a new [place]o [place] [facility] [place] [facility] [place]. Pt is also requesting a refill on Lidocaine patches that were lastprescribed a couple years ago as pt uses it sparingly for chronic back pain. Please advise if you would like me to queue med. * Telephone Encounter - Roxann Junior - 05/09/2023 3:43 PM EST Tc from pt needs new referral for mammogram. Pt missed original appointment and office needs new referral/order documented in this encounter Plan of Treatment Upcoming Encounters Date Type Department Care Team (Late st Contact Info) Description 07/13/2024 11:30 AM EDT Telemedicine [facility] MED & PEDS [address] [place] [address] Kristin Rivera MD [address] [place] [address] documented as of this encounter Visit Diagnoses Not on filedocumented in this encounter Additional Health Concerns Assessment Noted Time PHQ-9 Depression Total Score: 22 023 11:16 AM EDT documented as of this encounter Care Teams Food Service Sales Representatives Relationship Specialty Start Date End Date Kristin Rivera MD [address] [place] [address] PCP - General Family Medicine 01/17/17 documented as of this encounter
--- OUTSIDE RECORDS SUMMARY | 2024-06-30 10:21 | XMS_ITS | Encounter Summary ---
Author Organization [employer] Address [address] [facility] [address] 7t [place] [address] Care Team Providers Care Croze Cutter Helper Name Role Phone Kristin Rivera MD Primary Care Provider [phone] Reason for Visit * Reason Onset Date Comments Referral 12/03/2023 Encounter Details Date Type Department Care Team ([facility] st Contact Info) Description 12/03/2023 Telephone [facility] MED[facility]INE [address] [place] [address] Kristin Rivera MD [address] [place] [address] Referral Social History Tobacco Use Types Packs/Day Years [...] encounter Miscellaneous Notes * Telephone Encounter - Uma Cason - 12/04/2023 9:25 AM EDT Referral faxed to [facility] sleep medicine for review. Office will contact patient with an appointment. * Telephone Encounter - Jluis Garcia - 12/03/2023 2:09 PM EDT Tc from pt calling in regards to sleep study referral. Pt is requesting for referral to be re sent stating it was sent with missing information. Pt stated she needs referral sent as soon as possible. If any questions you can contact pt at [phone]. documented in this encounter Plan of Treatment Upcoming Encounters Date Type Department Care Team ([facility] st Contact Info) Description 07/13/2024 11:30 AM EDT Telemedicine [facility] MED & PEDS [address] [place] [address] Kristin Rivera MD [address] [place] [address] documented as of this encounter Visit Diagnoses Not on filedocumented in this encounter Additional Health Concerns Assessment Noted Time PHQ-9 Depression Total Score: 22 023 11:16 AM EDT documented as of this encounter Care Teams Croze Cutter Helper Relationship Specialty Start Date End Date Kristin Rivera MD [address] [place] [address] PCP - General Family Medicine 01/17/17 documented as of this encounter
--- OUTSIDE RECORDS SUMMARY | 2024-06-30 10:22 | XMS_ITS | Encounter Summary ---
Author Organization [employer] Address 75 [facility] 7t [place] [address] Care Team Providers Care Waiter/Waitress Bar Name Role Phone Kristin Rivera MD Primary Care Provider [phone] Encounter Details Date Type Department Care Team ([facility] st Contact Info) Description 06/15/2024 11:15 AM EST Telemedicine [facility] MED & PEDS [address] [place] [address] Kristin Rivera MD [address] [place] [address] Other insomnia (Primary Dx) Social History Tobacco Use Types Packs/Day Years [...] your housing situation today? I have tsering coello 04/07/[address] you [...] AM EDT documented as of this encounter Progress Notes * Kristin Rivera MD - 06/15/2024 11:15 AM EST Subjective Patient ID: Lin Rodriguez is a 54 y.o. female who presents for No chief complaint on file.. Insomnia The problem has been gradually improving. Pertinent negatives include no abdominal pain, anorexia, arthralgias, change in bowel habit, chest pain, chills, congestion, coughing, diaphoresis, fatigue, fever, headaches, joint swelling, myalgias, nausea, neck pain, numbness, rash, sore throat, swollen g lands, urinary symptoms, vertigo, visual change, vomiting or weakness. Treatments tried: Ambien. Review of Systems Constitutional: Negative for chills, diaphoresis, fatigue and fever. HENT: Negative for congestion and sore throat. Respiratory: Negative for cough. Cardiovascular: Negative for chest pain. Gastrointestinal: Negative for abdominal pain, anorexia, change in bowel habit, nausea and vomiting. Musculoskeletal: Negative for arthralgias, joint swelling, myalgias and neck pain. Skin: Negative for rash. Neurological: Negative for vertigo, weakness, numbness and headaches. Psychiatric/Behavioral: The patient has insomnia. Objective Physical Exam Psychiatric: Mood and Affect: Mood normal. Behavior: Behavior normal. Thought Content: Thought content normal. Judgment: Judgment normal. Assessment/Plan Diagnoses and all orders for this visit: Other insomnia Comments: She was started on Ambien by sleep specialist States she sleeps for 1 hr more . Advised to add melatonin to the regimen.Iron infusion scheudled flavio. Other orders - amoxicillin (Amoxil) 500 MG capsule; Take 4 capsules (2,000 mg) by mouth 1 (one) time for 1 dose. documented in this encounter Plan of Treatment Upcoming Encounters Date Type Department Care Team (Late st Contact Info) Description 07/13/2024 11:30 AM EDT Telemedicine [facility] MED & PEDS [address] [place] [address] Kristin Rivera MD [address] [place] [address] documented as of this encounter Visit Diagnoses Diagnosis Other insomnia- Primary documented in this encounter Additional Health Concerns Assessment Noted Time PHQ-9 Depression Total Score: 22 024 9:14 AM EST documented as of this encounter Care Teams Waiter/Waitress Bar Relationship Specialty Start Date End Date Kristin Rivera MD [address] [place] [address] PCP - General Family Medicine 01/17/17 documented as of this encounter
--- OUTSIDE RECORDS SUMMARY | 2024-06-30 10:22 | XMS_ITS | Encounter Summary ---
Author Organization [employer] Address 75 [facility] 7t [place] [address] Care Team Providers Care Agile Test Lead Name Role Phone Kristin Rivera MD Primary Care Provider [phone] Reason for Visit * Reason Comments Med Refill Encounter Details Date Type Department Care Team ([facility] st Contact Info) Description 05/23/2024 Refill [facility] MED & PEDS [address] [place] [address] Balwinder Maloney MD [address] [place] [address] Insomnia, unspecified type Social History Tobacco Use Types Packs/Day Years [...] 07/13/2024 11:30 AM EDT Telemedicine [facility] MED & PEDS [address] [place] [address] Kristin Rivera MD [address] [place] [address] documented as of this encounter Visit Diagnoses Diagnosis Insomnia, unspecified type documented in this encounter Additional Health Concerns Assessment Noted Time PHQ-9 Depression Total Score: 22 024 9:14 AM EST documented as of this encounter Care Teams Agile Test Lead Relationship Specialty Start Date End Date Kristin Rivera MD [address] [place] [address] PCP - General Family Medicine 01/17/17 documented as of this encounter
--- OUTSIDE RECORDS SUMMARY | 2024-06-30 10:22 | XMS_ITS | Encounter Summary ---
Author Organization [employer] Address [address] [facility] [address] 7[address] [place] [address] Care Team Providers Care Artistic Director Name Role Phone Kristin Rivera MD Primary Care Provider [phone] Encounter Details Date Type Department Care Team (Latest Contact Info) Description 06/15/2024 Travel Social History Tobacco Use Types Packs/Day Years [...] the past 12 months, has t he [employer] gas, oil or water company threatened to [...] Info) Description 07/13/2024 11:30 AM EDT Telemedicine [facility] MED & PEDS [address] [place] [address] Kristin Rivera MD [address] [place] [address] documented as of this encounter Visit Diagnoses Not on filedocumented in this encounter Additional Health Concerns Assessment Noted Time PHQ-9 Depression Total Score: 22 024 9:14 AM EST documented as of this encounter Care Teams Artistic Director Relationship Specialty Start Date End Date Kristin Rivera MD [address] [place] [address] PCP - General Family Medicine 01/17/17 documented as of this encounter
--- OUTSIDE RECORDS SUMMARY | 2024-06-30 10:22 | XMS_ITS | Encounter Summary ---
Author Organization [employer] Address [address] [place] [address] 7t [place] [address] Care Team Providers Care Executive Assistant Name Role Phone Kristin Rivera MD Primary Care Provider [phone] Reason for Visit * Reason Comments Med Refill Encounter Details Date Type Department Care Team (Late st Contact Info) Description 12/14/2022 Refill [facility] MED & PEDS [address] [facility] [place] [address] Kristin Rivera MD [address] [place] [address] Social History Tobacco Use Types Packs/Day Years Used Date Smoking Tobacco: Every Day Cigarettes 0.5 35 Smokeless Tobacco: Never Alcohol Use Standard Drinks/Week Comments Never 0 (1 standard drink = 0.6 oz pur e alcohol) Depression Answer Date Recorded Patient Health Questionnaire-9 Score 22 12/05/2022 Depression Answer Date Recorded Patient Health Questionnaire-2 [...] Info) Description 07/13/2024 11:30 AM EDT Telemedicine [facility] MED & PEDS 505 [place] [address] Kristin Rivera MD [address] [place] [address] documented as of this encounter Visit Diagnoses Not on filedocumented in this encounter Additional Health Concerns Assessment Noted Time PHQ-9 Depression Total Score: 22 023 11:16 AM EDT documented as of this encounter Care Teams Executive Assistant Relationship Specialty Start Date End Date Kristin Rivera MD [address] [place] [address] PCP - General Family Medicine 01/17/17 documented as of this encounter
== END 2024-06-30 09:57 | disposition home or self-care (01) ==
PROVIDERS: PCP Student in an Organized Health Care Education/Training Program; Visit Provider Internal Medicine
DX: M62.85 Dysfunction of the multifidus muscles, lumbar region (principal)
CPT/HCPCS: 99213

== ENCOUNTER → 2024-06-30 09:17 | Outpatient (BNVA) | payer OTHER, SELFPAY | PROVIDERS: PCP Student in an Organized Health Care Education/Training Program; Visit Provider Internal Medicine ==

== ENCOUNTER 2024-07-14 09:01 | Outpatient (AMB) | payer OTHER, SELFPAY ==
--- NOTE | 2024-07-14 09:13 | A.OFFVIS_ITS ---
Vital Signs 07/14/24 09:14 Height 5 ft 6 in Weight 234 lb BMI 37.8 BP 124/74 Blood Pressure Location Lt brachial Position Sitting Respiration 16 Pulse 108 H Pulse Source Pulse Oximeter Pulse Oximetry (%) 99 Oxygen Delivery Method Room Air Intake Visit Reasons: Right Sprint removal Lap Cutter Required: No Allergies No Known Allergies Allergy (Verified 07/14/24 09:15) Medication List - Last Reconciled 07/14/24 by Jerrica Rodríguez LPN bupropion HCl 75 mg PO QAM cetirizine 10 mg PO DAILY PRN hydroxyzine HCl 50 mg PO BEDTIME metformin 1,000 mg PO DAILY sertraline (Zoloft) 25 mg PO DAILY tizanidine 2 mg PO TID PRN trazodone 50 mg PO BEDTIME PRN HPI HPI Right Sprint removal: Details: History of Present Illness The patient is a 54-year-old female presenting with unspecified concerns. She reported significant improvement from previous interventions, achieving approximately 80% to 90% relief. No explicit diagnoses or additional concerns were discussed, indicating satisfaction with current treatment outcomes. Pain Description - Relieved by approximately 80% to 90% following PNS treatment for LBP Physical Exam - Lead insertion sites are c/d/i Pain Management - Affect: Not explicitly discussed. - Analgesia: Patient reported 80% to 90% relief from previous treatments. - Adverse Effects: Not explicitly discussed. - Activities of Daily Living: Not explicitly discussed. - Aberrant Drug Related Behaviors: Not explicitly noted or discussed. [facility] Medical History (Updated 03/23/24 @ 08:40 by Andreas Baker MD) Lumbar spondylosis Lumbar radicular pain Low back pain Candidal intertrigo Hypercholesterolemia DM type 2 (diabetes mellitus, type 2) HTN (hypertension), benign Arthropathy Anxiety and depression Social History Patient Tobacco Use Status: Current everyday Tobacco user Physical Exam Vital Signs: Last Vital Signs Pulse 108 H 07/14/24 09:14 Resp 16 07/14/24 09:14 BP 124/74 07/14/24 09:14 Pulse Ox 99 07/14/24 09:14 Oxygen Delivery Method Room Air 07/14/24 09:14 BMI result Body Mass Index 37.8 Assessment & Plan Assessment & Plan (1) Dysfunction of the multifidus muscle of lumbar region: Code(s): M62.85 - Dysfunction of the multifidus muscles, lumbar region Category: Medical (2) Lumbar spondylosis: Code(s): M47.816 - Spondylosis without myelopathy or radiculopathy, lumbar region Category: Medical (3) Low back pain: Code(s): M54.50 - Low back pain, unspecified Category: Medical Plan Plan The patient's response suggested satisfaction with previous treatments and s ignificant >80% relief. Both leads are now removed. There were no explicit new ratings of pain, adverse effects, or changes in functional ability discussed. The absence of specific new complaints or problems and the assurance that everything was cool suggests that the current management plan will be continued, indicating satisfaction with ongoing treatment outcomes without the need for new interventions or adjustments discussed during this visit. Patient was informed and verbally consented to the use of an ambient scribe for clinic note documentation during this visit. Discussion Notes The discussion encompassed queries and confirmation of the absence of additional concerns or questions from the patient, resulting in affirmations of her satisfaction with prior treatments and achieving an 80% to 90% level of relief. There was no detailed engagement in specific management, treatment options, or future follow-up protocols available from the information captured. The tone suggested the patient maintained comfort with her current status, and future follow-up might be implied but not explicitly planned or discussed. Coding Level of Care Code Est Pt Level 3 (19439) Diagnoses Dysfunction of the multifidus muscle of lumbar region M62.85 Lumbar spondylosis M47.816 Low back pain M54.50
[2024-07-14 09:14] VITALS: BP 124/74; PULSE 108; RESP 16; O2SAT 99; BMI 37.8
--- OUTSIDE RECORDS SUMMARY | 2024-07-14 09:52 | XMS_ITS | Encounter Summary ---
Author Organization [employer] Address [address] [facility] 7t [place] [address] Care Team Providers Care Diesel Roller Operator Name Role Phone Kristin Rivera MD Primary Care Provider [phone] Reason for Visit * Reason Onset Date Comments Request For Order(s) 05/09/2023 Encounter Details Date Type Department Care Team ([facility] Contact Info) Description 05/09/2023 Telephone [facility] MED & PEDS [address] [place] [address] Kristin Rivera MD [address] [place] [address] Request For Order(s) Social History Tobacco Use [...] new mammo order to be [place] [facility] [place] as [facility] [place] requesting one. Pt is also requesting [...] Care Team (Late st Contact Info) Description 08/24/2024 11:30 AM EDT Telemedicine [facility] MED & PEDS [address] [place] [address] Kristin Rivera MD [address] [place] [address] documented as of this encounter Visit Diagnoses Not on filedocumented in this encounter Additional Health Concerns Assessment Noted Time PHQ-9 Depression Total Score: 22 023 11:16 AM EDT documented as of this encounter Care Teams Diesel Roller Operator Relationship Specialty Start Date End Date Kristin Rivera MD [address] [place] [address] PCP - General Family Medicine 01/17/17 documented as of this encounter
--- OUTSIDE RECORDS SUMMARY | 2024-07-14 09:52 | XMS_ITS | Clinical Summary ---
Author Organization [employer] Address [address] [facility] 7t [place] [address] Care Team Providers Care Cutter Gas Name Role Phone Kristin Rivera MD Primary Care Provider [phone] Allergies No known active allergies Medications * [...] BID 100 each 3 12/06/19 23 Active Blood Glucose Monitoring Suppl ([employer] Wayland Lite) w/Device kit Use to test blood sugar 2 times daily 1 kit 07/07/19 24 Active albuterol 108 (90 Base) MCG/ACT inhalerIndicatio [...] 90 tablet 3 04/07/20 24 025 Active SUMAtriptan (Imitrex) 25 MG tablet TAKE 1 TABLET BY MOUTH IF NEEDED FOR MIGRAINE. MAY REPEAT DOSE IN 2 HOURS IF NO RELIEF. MAX 06/21 HR 9 tablet 6 04/27/20 24 Active cetirizine (ZyrTEC) 10 MG tabletIndication s:Mild intermittent asthma without complication TAKE 1 TABLET BY MOUTH EVERY DAY 90 tablet 3 07/10/19 25 Active buPROPion (Wellbutrin) 75 MG tablet TAKE 1 TABLET (75 MG) BY MOUTH ONCE PER DAY. 90 tablet 3 07/10/19 25 025 Active doxylamine (Unisom SleepTabs) 25 MG tablet Take 1 tablet (25 mg) by mouth if needed at bedtime for sleep. 30 tablet 1 07/14/19 25 025 Active cetirizine (ZyrTEC) 10 MG tabletIndication s:Mild intermittent asthma without complication TAKE 1 TABLET BY MOUTH EVERY DAY 90 tablet 3 06/05/19 24 025 Discontinued FREESTYLE LITE test strip Use to test blood sugar 2 times daily 100 each 12 07/07/19 24 025 Discontinued buPROPion (Wellbutrin) 75 MG tablet Take 1 tablet (75 mg) by mouth Once per day. 30 tablet 3 04/07/20 24 025 Discontinued traZODone (Desyrel) 50 MG tablet Take 0.5 tablets (25 mg) by mouth at bedtime. 15 tablet 2 05/10/19 25 025 Discontinued zolpidem (Ambien) 10 MG tablet Take 10 mg by mouth at bedtime. 06/10/19 25 025 Discontinued amoxicillin (Amoxil) 500 MG capsule Take 4 capsules (2,000 mg) by mouth 1 (one) time for 1 dose. 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 ?? PLAN: 1. Follow up with [facility]: Recommended for follow-up: As needed 2. Patient goal is??to explore coping mechanisms and decrease depression and anxiety symptoms 3. Behavioral Recommendations 4. OP therapy 5. PTSD onsite health coach -guided deep breathing 6. Journaling?? Assessment [...] of change. PLAN: 1. Follow up with [facility]: Not recommended for follow-up 2. Patient goal is to explore coping mechanisms and decrease depression and anxiety symptoms 3. Behavioral Recommendations a. OP therapy b. PTSD onsite health coach -guided deep breathing c. Journaling Type [...] Encounters Date Type Department Care Team Description 07/13/2024 11:30 AM EDT Telemedicine [facility] PEDS [address] [place] [address] Kristin Rivera MD Other insomnia (Primary Dx) 07/13/2024 Travel 07/09/2024 Refill [facility] [address] [place] [address] Kristin Rivera MD Mild intermittent asthma without complication 06/15/2024 11:15 AM EST Telemedicine [facility] [address] [place] [address] Kristin Rivera MD Other insomnia (Primary Dx) 06/15/2024 Travel 05/23/2024 Refill [facility] [address] [place] [address] Balwinder Maloney MD Insomnia, unspecified type 05/10/2024 8:45 AM EST Telemedicine [facility] [address] [place] [address] Kristin Rivera MD Type 2 diabetes mellitus without complication, without long-term current use of insulin ([facility]) (Primary Dx); Other insomnia 05/10/2024 Travel 04/29/2024 Refill [facility] [address] [place] [address] Kristin Rivera MD Vaginal itching 04/24/2024 Refill [facility] [address] [place] [address] Kristin Rivera MD from Last 3 Months Immunizations Name Administration Dates Next Due Influenza Injectable Quadriv alant Preservative Free IIV4 MDCK 02/10/2020 Influenza injectable quadriv alent IIV4 with preservative 03/16/2018 Influenza injectable quadriv alent preservative free 02/15/2022,03/03/2021 Influenza, seasonal, injecta ble, preservative free 04/07/2024 Moderna Covid-19 Vaccine 12+ 03/03/2021,08/26/19,07/28/2020 Pfizer Covid-19 Vaccine 12+ 04/07/2024 TD (adult), [...] Answer Date Recorded Patient Health Questionnaire-9 Score 17 07/13/2024 Patient Health Questionnaire-9 Score 17 07/13/2024 Last PHQ-9: Questionnaire Data Not on file 0 07/13/2024 Housing Stability Answer Date Recorded What is [...] Date Recorded Patient Health Questionnaire-2 Score 6 07/13/2024 Internet Access Answer Date Recorded Internet Access [...] 36.2 ??C (97.1 ??F) 04/07/2024 8:43 AM ES T Respiratory Rate 18 04/07/2024 8:43 AM EST [...] Info) Description 08/24/2024 11:30 AM EDT Telemedicine [facility] [address] [place] [address] Kristin Rivera MD [address] [place] [address] Health Maintenance Due Date Last Done Comments CT Colonography 1971 Colonoscopy 1971 FIT DNA/Cologuard 1971 FIT 1971 HIV Screening 1971 Sigmoidoscopy 1971 Hepatitis C Screening 1989 Hepatitis B Vaccines (1 of 3 - 19+ 3-dose series) 1990 Pneumococcal Vaccine: 50+ Years (1 of 2 - PCV) 1990 Colorectal Cancer Screening 11/11/2020 FOBT 11/11/2020 11/12/2019 Mammogram 06/07/2024 06/07/2023, 04/17/2018 Zoster Vaccines (2 of 2) 08/19/2024 06/24/2024 Depression Monitoring (PHQ-9) 01/13/2025 07/13/2024, 07/13/2024 Alcohol/Substance Use Screening 04/07/2025 04/07/2024 SDOH Screening 04/07/2025 04/07/2024 Tobacco Screening 06/15/2025 06/15/2024 Depression Screening 07/13/2025 07/13/2024, 07/14/19 25 Lipid Panel 05/06/2029 05/06/2024, 04/28, 01/16/2021 DTaP/Tdap/Td Vaccines (5 - Td or Tdap) 06/24/2034 06/24/2024, 05/21/2018, 03/16/2018, Additional history exists RSV Patients and Patients Aged 60 years [...] complication, without long-term current use of insulin ([facility]) HEPATIC FUNCTION PANEL Routine 8:34 AM EST Type 2 diabetes mellitus without complication, without long-term current use of insulin ([facility]) LIPID PANEL, STANDARD Routine 05/06/2024 8:34 AM EST Type 2 diabetes mellitus without complication, without long-term current use of insulin ([facility]) BASIC METABOLIC PANEL Routine 05/06/2024 8:34 AM EST Type 2 diabetes mellitus without complication, without long-term current use of insulin ([facility]) BI MAMMOGRAM SCREENING TOMOSYNTHESIS BILATERAL Routine 06/07/2023 7:40 AM EST OCCULT BLOOD, FECAL, IMMUNOASSAY Routine 11/12/2019 7:03 PM EDT from Last 3 Months or Most Recently Relevant to Health Maintenance Results * (ABNORMAL) Hemoglobin A1c (05/06/2024 8:34 AM EST) Hemoglobin A1c 9.2(H) <6.0 % [facility] Comment:Hemoglobin A1C Refer ence Range Adults: 4.8 - 6.0 % Non diabetic: < 6.0 % Goal: < 7.0 %Additional Action Suggested: > 8.0 %Note: Hemoglobin A1c results are invalid for patients with abnormal amounts of HbF. Blood transfusions may impact the HbA1c concentration in the patient sample. Estimated Average Glucose 217 mg/dL [facility] Comment:eAG = Estimated ave rage glucose which is %A1C expressed asaverage glucose, using the formula of the H6P-[id number] Glucose study (ADAG), Diabetes Care, Vol.31,#8,Nov. 2007 Blood Venous blood specimen / Unknown 05/06/2024 8:34 AM EST 05/06/2024 2:07 PM EST us Kristin Rivera MD LAB BLOOD ORDERABLES Final Resul t [facility] [address] [place] [phone] * Hepatic Function Panel (05/06/2024 8:34 AM EST) Bilirubin, Total 0.4 0.0 - 1.0 mg/dL [facility] Bilirubin, Direct 0.2 0.0 - 0.5 mg/dL [facility] Aspartate Amino Transferase 24 5 - 31 U/L [facility] Alanine Aminotransferase 20 0 - 31 U/L [facility] Total Protein 7.0 6.5 - 8.0 g/dL [facility] Albumin Level 3.8 3.5 - 5.0 g/dL [facility] Alkaline Phosphatase 91 39 - 117 U/L [facility] Blood Venous blood specimen / Unknown 05/06/2024 8:34 AM EST 05/06/2024 2:07 PM EST us Kristin Rivera MD LAB BLOOD ORDERABLES Final Resul t [facility] [address] [place] [phone] * (ABNORMAL) Lipid Panel, Standard (05/06/2024 8:34 AM EST) Triglycerides 163(H) <150 mg/dL [facility] Comment:Slight Lipemia.Courtney able Triglyceride: less than 150 mg/dLBorderline High Triglyceride 150-199 mg/dLHigh Triglyceride: 200-499 mg/dLVery High Triglyceride: greater than or equal to 5OO mg/dL Cholesterol 292(H) <200 mg/dL [facility] Comment:Desirable Cholestero l: less than 200 mg/dLBorderline High Cholesterol: 200-239 mg/dLHigh Cholesterol: greater than 239 mg/dL LDL Cholesterol Calculated 193(H) <100 mg/dL [facility] Comment:Desirable LDL: less than 100 mg/dLNear Optimal/Above Optimal LDL: 110- 129 mg/dLBorderline High LDL: 130-159 mg/dLHigh LDL: 160-189 mg/dLVery High LDL: greater than or equal to 190 mg/dL HDL Cholesterol 67 >40 mg/dL [facility] Comment:Desirable HDL: grea ter than 40 mg/dL Note: This HDL assay may give artificially low results in patients with liver disease. Blood Venous blood specimen / Unknown 05/06/2024 8:34 AM EST 05/06/2024 2:07 PM EST Kristin Rivera MD LAB BLOOD ORDERABLES Final Resul t Performing Organization Address [facility] Co de Phone Number [facility] [address] [place] [phone] * (ABNORMAL) Basic Metabolic Panel (05/06/2024 8:34 AM EST) Sodium 141 135 - 145 mmol/L [facility] Potassium 4.2 3.3 - 5.1 mmol/L [facility] Chloride 103 96 - 108 mmol/L [facility] Carbon Dioxide 29 22 - 29 mmol/L [facility] Anion Gap 13 12 - 20 [facility] Urea Nitrogen (BUN) 12 9 - 16 mg/dL [facility] Creatinine, Serum 0.73 0.5 - 1.4 mg/dL [facility] Estimated Glomerular Filt Rate >60 [facility] Comment:Chronic Kidney Disea se: Estimated GFR < 60 mL/min/1.40h7Sbdyvh Kidney Disease: Estimated GFR < 15 mL/min/1.73m2 Glucose 132(H) 60 - 115 mg/dL [facility] Calcium 9.3 8.4 - 10.2 mg/dL [facility] Blood Venous blood specimen / Unknown 05/06/2024 8:34 AM EST 05/06/2024 2:07 PM EST Kristin Rivera MD LAB BLOOD ORDERABLES Final Resul t Performing Organization Address [facility] Co de Phone Number [facility] [address] [place] [phone] * BI Mammogram Screening Tomosynthesis Bilateral (06/07/2023 7:40 AM EST) Anatomical Region Laterality Modality Breast Bilateral Mammography 06/07/2023 7:40 AM EST Narrative 06/21/2023 1:22 PM EST ? [facility] ? [address] ?[place] [address] ? Mammography Report ? Signed ? Patient: Rodriguez,Lin ?MR#: [id number] ?? 50 ? : 1970 ?Acct:[id number] ? Age/Sex: 52 / F ?ADM Date: 06/07/23 ? Loc: HO.MAMMO ? Attending Dr: Kristin Rivera MD ? Ordering Physician: Kristin Rivera MD ?Results: 1Negati ?? ve ? Date of Service: 06/07/23 ?Follow Up: 1 Year From Orig ?? inal Mammogram ? Procedure(s): MM tomosynthesis screening BI ?? Accession Number(s): [id number] ? cc: Kristin Rivera MD ? EXAMINATION: [...] by Amanda Reardon MD in OV> ? 06/21/238 ? DD/ 0740 ? TD/TT: ? Cut In Worker: ? Procedure Note Donashley, Image - 06/21/2023 [facility] [address] [place] [address] Mammography Report Signed Patient: Lin RodriguezMR#: [id number] 50 : 1970Acct:[id number] Age/Sex: 52 / FADM Date: 06/07/23 Loc: HO.MAMMO Attending Dr: Kristin Rivera MD Ordering Physician: Kristin Rivera MDResults: 1Negati ve Date of Service: 06/07/23Follow Up: 1 Year From Orig inal Mammogram Procedure(s): MM tomosynthesis screening BI Accession Number(s): [id number] cc: Kristin Rivera MD EXAMINATION: MM SCREENING [...] in OV> 06/21/23 1318 DD/ 0740 TD/TT: Cut In Worker: Kristin Rivera MD IMG BI PROCEDURES Edited Result - Final * (ABNORMAL) OCCULT BLOOD STOOL (11/12/2019 7:03 PM EDT) OCCULT BLOOD STOOL POS(AA) NEG [facility] 11/12/2019 7:03 PM EDT Historical Provider LAB BODY FLUIDS AND STOOL S ORDERABLES Final Result [facility] [address] from Last 3 Months or Most Recently Relevant to Health Maintenance Insurance [facility] , [address] [place] [address] * Guarantor: Lin Rodriguez Account Type Relation to Patient Date of Phone Billing Address Personal/Family Self [address] [facility] [place] Care Teams Cutter Gas Relationship Specialty Start Date End Date Kristin Rivera MD [address] [place] [phone] PCP - General Family Medicine 01/17/17
--- OUTSIDE RECORDS SUMMARY | 2024-07-14 09:52 | XMS_ITS | Encounter Summary ---
Author Organization [employer] Address [address] [facility] [address] 7t [place] [address] Care Team Providers Care Rn Outpatient Surgery Name Role Phone Kristin Rivera MD Primary Care Provider [phone] Reason for Visit * Reason Onset Date Comments Nurse Triage 11/03/2023 Encounter Details Date Type Department Care Team (Late st Contact Info) Description 11/03/2023 Telephone [facility] MEDICINE [address] [place] [address] Kristin Rivera MD [address] [place] [address] Nurse Triage Social History Tobacco Use Types [...] apt. 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 All home care advised has been implemented already. ASK with Dr. Rivera 11/17/23 @ 675a. Insurance is verified as active priorto booking. Pt agrees with disposition. Protocol Used: [...] Info) Description 08/24/2024 11:30 AM EDT Telemedicine [facility] MED & PEDS [address] [place] [address] Kristin Rivera MD [address] [place] [address] documented as of this encounter Visit Diagnoses Not on filedocumented in this encounter Additional Health Concerns Assessment Noted Time PHQ-9 Depression Total Score: 22 023 11:16 AM EDT documented as of this encounter Care Teams Rn Outpatient Surgery Relationship Specialty Start Date End Date Kristin Rivera MD [address] [place] [address] PCP - General Family Medicine 01/17/17 documented as of this encounter
--- OUTSIDE RECORDS SUMMARY | 2024-07-14 09:52 | XMS_ITS | Encounter Summary ---
Author Organization [employer] Address [address] [facility] [address] 7[address] [place] [address] Care Team Providers Care Systems Integration Engineer Name Role Phone Kristin Rivera MD Primary Care Provider [phone] Reason for Visit * Reason Onset Date Comments Referral 12/03/2023 Encounter Details Date Type Department Care Team ([facility] st Contact Info) Description 12/03/2023 Telephone [facility] MEDICINE [address] [place] [address] Kristin Rivera MD [address] [place] [address] Referral Social History Tobacco Use Types Packs/Day [...] any questions you can contact pt at [phone]. documented in this encounter Plan of Treatment Upcoming Encounters Date Type Department Care Team ([facility] st Contact Info) Description 08/24/2024 11:30 AM EDT Telemedicine [facility] MED & PEDS [address] [place] [address] Kristin Rivera MD [address] [place] [address] documented as of this encounter Visit Diagnoses Not on filedocumented in this encounter Additional Health Concerns Assessment Noted Time PHQ-9 Depression Total Score: 22 023 11:16 AM EDT documented as of this encounter Care Teams Systems Integration Engineer Relationship Specialty Start Date End Date Kristin Rivera MD [address] [place] [phone] PCP - General Family Medicine 01/17/17 documented as of this encounter
--- OUTSIDE RECORDS SUMMARY | 2024-07-14 09:52 | XMS_ITS | Encounter Summary ---
Author Organization [employer] Address [address] [place] [address] 7t [place] [address] Care Team Providers Care Animal Care Service Worker Name Role Phone Kristni Rivera MD Primary Care Provider [phone] Encounter Details Date Type Department Care Team (Latest Contact Info) Description 09/14/2018 Abstract [facility] CONVERSIONS Dental, Provider, DDS Social History [...] Info) Description 08/24/2024 11:30 AM EDT Telemedicine [facility] MED & PEDS [address] [place] [address] Kristin Rivera MD [address] [place] [address] documented as of this encounter Visit Diagnoses Not on filedocumented in this encounter Care Teams Animal Care Service Worker Relationship Specialty Start Date End Date Kristin Rivera MD [address] [place] [phone] PCP - General Family Medicine 01/17/17 documented as of this encounter
--- OUTSIDE RECORDS SUMMARY | 2024-07-14 09:53 | XMS_ITS | Encounter Summary ---
Author Organization [employer] Address [address] [facility] [address] 7t [place] [address] Care Team Providers Care It Communications Specialist Name Role Phone Kristin Rivera MD Primary Care Provider [phone] Encounter Details Date Type Department Care Team (Latest Contact Info) Description 07/13/2024 Travel Social History Tobacco Use Types Packs/Day [...] the past 12 months, has t he [employer], gas, oil or water company threatened to [...] Upcoming Encounters Date Type Department Care Team ([facility] st Contact Info) Description 08/24/2024 11:30 AM EDT Telemedicine [facility] MED & PEDS [address] [place] [address] Kristin Rivera MD [address] [place] [address] documented as of this encounter Visit Diagnoses Not on filedocumented in this encounter Additional Health Concerns Assessment Noted Time PHQ-9 Depression Total Score: 17 025 9:08 AM EDT documented as of this encounter Care Teams It Communications Specialist Relationship Specialty Start Date End Date Kristin Rivera MD [address] [place] [phone] PCP - General Family Medicine 01/17/17 documented as of this encounter
--- OUTSIDE RECORDS SUMMARY | 2024-07-14 09:53 | XMS_ITS | Encounter Summary ---
Author Organization [employer] Address [address] [facility] 7t [place] [address] Care Team Providers Care Lay Out Former Name Role Phone Kristin Rivera MD Primary Care Provider [phone] Encounter Details Date Type Department Care Team ([facility] st Contact Info) Description 07/13/2024 11:30 AM EDT Telemedicine [facility] MED & PEDS [address] [place] [address] Kristin Rivera MD [address] [place] [address] Other insomnia (Primary Dx) Social History Tobacco [...] Progress Notes * Kristin Rivera MD - 07/13/2024 11:30 AM EDT Subjective Patient ID: Lin Rodriguez is a 54 y.o. female who presents for No chief complaint on file.. Insomnia This is a chronic problem. The problem occurs constantly. Pertinent negatives include no abdominal pain, anorexia, arthralgias, change in bowel habit, chills, coughing, diaphoresis, fatigue, joint swelling, myalgias, neck pain, numbness, rash, sore throat, vertigo, vomiting or weakness. Treatments tried: ambien. The treatment provided no relief. Review of Systems Constitutional: Negative for chills, diaphoresis and fatigue. HENT: Negative for sore throat. Respiratory: Negative for cough. Gastrointestinal: Negative for abdominal pain, anorexia, change in bowel habit and vomiting. Musculoskeletal: Negative for arthralgias, joint swelling, myalgias and neck pain. Skin: Negative for rash. Neurological: Negative for vertigo, weakness and numbness. Psychiatric/Behavioral: The patient has insomnia. Objective Physical Exam Psychiatric: Mood and Affect: Mood normal. Behavior: Behavior normal. Thought Content: Thought content normal. Judgment: Judgment normal. Assessment/Plan Diagnoses and all orders for this visit: Other insomnia Comments: Started On Unisom Advised to avoid caffiend Educated about sleep hygiene Other orders - doxylamine (Unisom SleepTabs) 25 MG tablet; Take 1 tablet (25 mg) by mouth if needed at bedtime for sleep. documented in this encounter Plan of Treatment Upcoming Encounters Date Type Department Care Team (Late st Contact Info) Description 08/24/2024 11:30 AM EDT Telemedicine [facility] MED & PEDS [address] [place] [address] Kristin Rivera MD [address] [place] [address] documented as of this encounter Visit Diagnoses Diagnosis Other insomnia- Primary documented in this encounter Additional Health Concerns Assessment Noted Time PHQ-9 Depression Total Score: 17 025 9:08 AM EDT documented as of this encounter Care Teams Lay Out Former Relationship Specialty Start Date End Date Kristin Rivera MD [address] [place] [phone] PCP - General Family Medicine 01/17/17 documented as of this encounter
--- OUTSIDE RECORDS SUMMARY | 2024-07-14 09:53 | XMS_ITS | Encounter Summary ---
Author Organization [employer] Address [address] [place] [address] 7t [place] [address] Care Team Providers Care Caser In Name Role Phone Kristin Rivera MD Primary Care Provider [phone] Reason for Visit * Reason Comments Med Refill Encounter Details Date Type Department Care Team (Late st Contact Info) Description 12/14/2022 Refill [facility] MED & PEDS [address] [place] [address] Kristin Rivera MD [address] [place] [address] Social History Tobacco Use Types Packs/Day Years [...] Info) Description 08/24/2024 11:30 AM EDT Telemedicine [facility] MED & PEDS 505 [place] [address] Kristin Rivera MD [address] [place] [address] documented as of this encounter Visit Diagnoses Not on filedocumented in this encounter Additional Health Concerns Assessment Noted Time PHQ-9 Depression Total Score: 22 023 11:16 AM EDT documented as of this encounter Care Teams Caser In Relationship Specialty Start Date End Date Kristin Rivera MD [address] [place] [phone] PCP - General Family Medicine 01/17/17 documented as of this encounter
--- OUTSIDE RECORDS SUMMARY | 2024-07-14 09:53 | XMS_ITS | Encounter Summary ---
Author Organization [employer] Address [address] [place] [address] Care Team Providers Care Stretch Machine Operator Name Role Phone Kristin Rivera MD Primary Care Provider [phone] Encounter Details Date Type Department Care Team [...] the past 12 months, has t he [employer], gas, oil or water company threatened to [...] Upcoming Encounters Date Type Department Care Team ([facility] st Contact Info) Description 08/24/2024 11:30 AM EDT Telemedicine [facility] MED & PEDS [address] [place] [address] Kristin Rivera MD [address] [place] [address] documented as of this encounter Visit Diagnoses Not on filedocumented in this encounter Additional Health Concerns Assessment Noted Time PHQ-9 Depression Total Score: 22 024 9:14 AM EST documented as of this encounter Care Teams Stretch Machine Operator Relationship Specialty Start Date End Date Kristin Rivera MD [address] [place] [phone] PCP - General Family Medicine 01/17/17 documented as of this encounter
--- OUTSIDE RECORDS SUMMARY | 2024-07-14 09:53 | XMS_ITS | Encounter Summary ---
Author Organization [employer] Address [address] [facility] 7t [place] [address] Care Team Providers Care Management Retail Intern Name Role Phone Kristin Rivera MD Primary Care Provider [phone] Reason for Visit * Reason Comments Med Refill Encounter Details Date Type Department Care Team ([facility] st Contact Info) Description 05/23/2024 Refill [facility]C MED & PEDS 505 [place] [address] Balwinder Maloney MD 505 [place] [address] Insomnia, unspecified type Social History Tobacco Use [...] Info) Description 08/24/2024 11:30 AM EDT Telemedicine [facility] MED & PEDS 505 [place] [address] Kristin Rivera MD 505 [place] [address] documented as of this encounter Visit Diagnoses Diagnosis Insomnia, unspecified type documented in this encounter Additional Health Concerns Assessment Noted Time PHQ-9 Depression Total Score: 22 024 9:14 AM EST documented as of this encounter Care Teams Management Retail Intern Relationship Specialty Start Date End Date Kristin Rivera MD [address] [place] [address] PCP - General Family Medicine 01/17/17 documented as of this encounter
--- OUTSIDE RECORDS SUMMARY | 2024-07-14 09:53 | XMS_ITS | Encounter Summary ---
Author Organization [employer] Address [address] [facility] 7t [place] [address] Care Team Providers Care Ballaster Name Role Phone Kristin Rivera MD Primary Care Provider [phone] Encounter Details Date Type Department Care Team ([facility] st Contact Info) Description 06/15/2024 11:15 AM EST Telemedicine [facility] MED & PEDS 505 [place] [address] Kristin Rivera MD 505 [place] [address] Other insomnia (Primary Dx) Social History Tobacco [...] 08/24/2024 11:30 AM EDT Telemedicine [facility] MED & PEDS 505 [place] [address] Kristin Rivera MD 505 [place] [address] documented as of this encounter Visit Diagnoses Diagnosis Other insomnia- Primary documented in this encounter Additional Health Concerns Assessment Noted Time PHQ-9 Depression Total Score: 22 024 9:14 AM EST documented as of this encounter Care Teams Ballaster Relationship Specialty Start Date End Date Kristin Rivera MD [address] [place] [address] PCP - General Family Medicine 01/17/17 documented as of this encounter
--- OUTSIDE RECORDS SUMMARY | 2024-07-14 09:53 | XMS_ITS | Encounter Summary ---
Author Organization [employer] Address [address] [facility] 7t [place] [address] Care Team Providers Care Cement Block Maker Name Role Phone Kristin Rivera MD Primary Care Provider [phone] Reason for Visit * Reason Comments Med Refill Encounter Details Date Type Department Care Team ([facility] st Contact Info) Description 07/09/2024 Refill [facility] MED & PEDS 505 [place] [address] Kristin Rivera MD 505 [place] [address] Mild intermittent asthma without complication Social History Tobacco Use Types Packs/Day Years [...] 08/24/2024 11:30 AM EDT Telemedicine [facility] MED & PEDS [address] [place] [address] Kristin Rivera MD 505 [place] [address] documented as of this encounter Visit Diagnoses Diagnosis Mild intermittent asthma without complication documented in this encounter Additional Health Concerns Assessment Noted Time PHQ-9 Depression Total Score: 22 024 9:14 AM EST documented as of this encounter Care Teams Cement Block Maker Relationship Specialty Start Date End Date Kristin Rivera MD [address] [place] [address] PCP - General Family Medicine 01/17/17 documented as of this encounter
== END 2024-07-14 09:33 | disposition home or self-care (01) ==
LOC: HO.PMC 09:01
PROVIDERS: PCP Student in an Organized Health Care Education/Training Program; Visit Provider Internal Medicine
DX: M62.85 Dysfunction of the multifidus muscles, lumbar region (principal); M47.816 Spondylosis without myelopathy or radiculopathy, lumbar region; M54.50 Low back pain, unspecified
CPT/HCPCS: 99213

== ENCOUNTER 2025-02-18 08:49 | Outpatient (REF) | payer MEDICAID, SELFPAY ==
--- OUTSIDE RECORDS SUMMARY | 2025-02-18 09:27 | XMS_ITS | Encounter Summary ---
Author Organization [employer] Address [address] [place] [address] 7t [place] [address] Care Team Providers Care Weaving Inspector Name Role Phone Kristin Rivera MD Primary Care Provider [phone] Jovita Byrne PharmD Unavailable [phone] Reason for Visit * Reason Onset Date Comments Error (VOID this visit) 02/17/2025 Encounter Details Date Type Department Care Team ([facility] Contact Info) Description 02/17/2025 Telephone [facility] MED & PEDS 505 [place] [address] Kristin Rivera MD 505 [place] [address] Error (VOID this visit) Social History Tobacco Use Types Packs/Day Years Used Date Smoking Tobacco: Every Day Cigarettes 0.5 35 Smokeless Tobacco: Never Alcohol Use Standard Drinks/Week Comments Never 0 (1 standard drink = 0.6 oz pur e alcohol) Depression Answer Date Recorded Patient Health Questionnaire-9 Score 21 02/02/2025 Patient Health Questionnaire-9 Score 21 02/02/2025 Last PHQ-9: Questionnaire Data Not on file 1 Housing Stability Answer Date Recorded What is [...] Answer Date Recorded Patient Health Questionnaire-2 Score 5 02/02/2025 Internet Access Answer Date Recorded Internet Access [...] Care Team (Late st Contact Info) Description 02/21/2025 1:00 PM EDT Telemedicine [facility] MED & PEDS [address] [place] [address] Jovita Byrne PharmD 230 [place] [address] documented as of this encounter Visit Diagnoses Not on filedocumented in this encounter Additional Health Concerns Assessment Noted Time PHQ-9 Depression Total Score: 21 025 9:33 AM EDT documented as of this encounter Care Teams Weaving Inspector Relationship Specialty Start Date End Date Kristin Rivera MD [address] [place] [address] PCP - General Family Medicine 01/17/17 Jovita Byrne PharmD [address] [place] [address] Pharmacist Internal Medicine 09/14/24 documented as of this encounter
--- OUTSIDE RECORDS SUMMARY | 2025-02-18 09:27 | XMS_ITS | Encounter Summary ---
Author Organization [employer] Address [address] [place] [address] 7t [place] [address] Care Team Providers Care Pump Servicer Helper Name Role Phone Kristin Rivera MD Primary Care Provider [phone] Jovita Byrne PharmD Unavailable [phone] Encounter Details Date Type Department Care Team (Latest Contact Info) Description 09/14/2018 Abstract [facility] CONVERSIONS Dental, Provider, DDS Social History Tobacco [...] Info) Description 02/21/2025 1:00 PM EDT Telemedicine [facility] MED & PEDS [address] [place] [address] Jovita Byrne, PharmD 230 [place] [address] documented as of this encounter Visit Diagnoses Not on filedocumented in this encounter Care Teams Pump Servicer Helper Relationship Specialty Start Date End Date Kristin Rivera MD [address] [place] [address] PCP - General Family Medicine 01/17/17 Jovita Byrne, PharmD [address] [place] [address] Pharmacist Internal Medicine 09/14/24 documented as of this encounter
--- OUTSIDE RECORDS SUMMARY | 2025-02-18 09:27 | XMS_ITS | Encounter Summary ---
Author Organization [employer] Address [address] [facility] 7t [place] [address] Care Team Providers Care Trade Union Secretary Name Role Phone Kristin Rivera MD Primary Care Provider [phone] Jovita Byrne PharmD Unavailable [phone] Encounter Details Date Type Department Care Team ([facility] st Contact Info) Description 09/15/2024 Orders Only [facility] CHC MED & PEDS [address] [place], [place] [phone] Kristin Rivera MD 505 [place] [address] Social History Tobacco Use Types Packs/Day Years [...] Info) Description 02/21/2025 1:00 PM EDT Telemedicine [facility] MED & PEDS [address] [place] [address] Jovita Byrne PharmD 230 [place] [address] documented as of this encounter Visit Diagnoses Not on filedocumented in this encounter Additional Health Concerns Assessment Noted Time PHQ-9 Depression Total Score: 17 025 9:08 AM EDT documented as of this encounter Care Teams Trade Union Secretary Relationship Specialty Start Date End Date Kristin Rivera MD 230 [place] [address] PCP - General Family Medicine 01/17/17 Jovita Byrne PharmD 230 [place] [address] Pharmacist Internal Medicine 09/14/24 documented as of this encounter
--- OUTSIDE RECORDS SUMMARY | 2025-02-18 09:27 | XMS_ITS | Encounter Summary ---
Author Organization [employer] Address [address] [facility] 7t [place] [address] Care Team Providers Care Farmer And Grazier Name Role Phone Kristin Rivera MD Primary Care Provider [phone] Jovita Byrne PharmD Unavailable [phone] Reason for Visit * Reason Onset Date Comments Appointment Request 12/20/2024 Encounter Details Date Type Department Care Team ([facility] Contact Info) Description 12/20/2024 Telephone [facility] CHC MED & PEDS [address] [place] [address] Kristin Rivera MD 505 [place] [address] Appointment Request Social History Tobacco Use Types Packs/Day Years Used Date Smoking Tobacco: Every Day Cigarettes 0.5 35 Smokeless Tobacco: Never Alcohol Use Standard Drinks/Week Comments Never 0 (1 standard drink = 0.6 oz pur e alcohol) Depression Answer Date Recorded Patient Health Questionnaire-9 Score 8 12/23/2024 Patient Health Questionnaire-9 Score 8 12/23/2024 Last PHQ-9: Questionnaire Data Not on file 0 12/23/2024 Housing Stability Answer Date Recorded What is [...] Answer Date Recorded Patient Health Questionnaire-2 Score 2 12/23/2024 Internet Access Answer Date Recorded Internet Access [...] AM EDT documented as of this encounter Functional Status * Over the past 2 weeks, how often have you been bothered by any of the following problems? Question Answer Date of Assessment Author Patient Health Questionnaire -2 Score 2 12/23/2024 9:25 AM EDT Brittany Molina MA * Little interest or pleasure in doing things Answer Date of Assessment Author Several days 12/23/2024 9:25 AM EDT Mar Molina MA * Feeling down, depressed, or hopeless Answer Date of Assessment Author Several days 12/23/2024 9:25 AM EDT Mar Molina MA * Trouble falling or staying asleep, or sleeping too much Answer Date of Assessment Author Several days 12/23/2024 9:25 AM EDT Mar Molina MA * Feeling tired or having little energy Answer Date of Assessment Author Several days 12/23/2024 9:25 AM EDT Mar Molina MA * Poor appetite or overeating Answer Date of Assessment Author Several days 12/23/2024 9:25 AM EDT Mar Molina MA * Feeling bad about yourself - or that you are a failure or have let yourself or your family down Answer Date of Assessment Author Several days 12/23/2024 9:25 AM VINITAT Mar Molina MA * Trouble concentrating on things, such as reading the newspaper or watching television Answer Date of Assessment Author Several days 12/23/2024 9:25 AM EDT Mar Molina MA * Moving or speaking so slowly that other people could have noticed? Or the opposite - being so fidgety or restless that you have been moving around a lot more than usual. Answer Date of Assessment Author Not at all 12/23/2024 9:25 AM EDT Mar Molina MA * Thoughts that you would be better off or hurting yourself in some way Answer Date of Assessment Author Several days 12/23/2024 9:25 AM Mar Lora MA * Patient Health Questionnaire-9 Score Answer Date of Assessment Author 8 12/23/2024 9:25 AM EDT Mar Molina MA * How difficult have these problems made it for you to do your work, take care of things at home, or get along with other people? Answer Date of Assessment Author Not difficult at all 12/23/2024 9:25 AM EDT Brittany Goodwin MA documented as of this encounter Miscellaneous Notes * Telephone Encounter - Sana Horn - 12/20/2024 8:15 AM EDT Tc from pt requesting to reschedule CDTM apt that was scheduled for 12/20 , pt is requesting if could be seen on 12/24 before or after pcp apt on 12/23 documented in this encounter Plan of Treatment Upcoming Encounters Date Type Department Care Team (Late st Contact Info) Description 02/21/2025 1:00 PM EDT Telemedicine [facility] MED & PEDS 505 [place] [address] Jovita Byrne, PharmD 230 [place] [address] documented as of this encounter Visit Diagnoses Not on filedocumented in this encounter Additional Health Concerns Assessment Noted Time PHQ-9 Depression Total Score: 17 07/13/2 025 9:08 AM EDT documented as of this encounter Care Teams Farmer And Grazier Relationship Specialty Start Date End Date Kristin Rivera MD [address] [place] [address] PCP - General Family Medicine 01/17/17 Jovita Byrne PharmD [address] [place] [address] Pharmacist Internal Medicine 09/14/24 documented as of this encounter
--- OUTSIDE RECORDS SUMMARY | 2025-02-18 09:27 | XMS_ITS | Encounter Summary ---
Author Organization [employer] Address [address] [facility] 7t [place] [address] Care Team Providers Care Tool Turret Lathe Set Up Operator Name Role Phone Kristin Rivera MD Primary Care Provider [phone] Jovita Byrne PharmD Unavailable [phone] Reason for Visit * Reason Onset Date Comments Nurse Triage 11/03/2023 Encounter Details Date Type Department Care Team (Late st Contact Info) Description 11/03/2023 Telephone [facility] MEDICINE [address] [place] [address] Kristin Rivera MD [address] [place], [place] [phone] Nurse Triage Social History Tobacco Use Types [...] apt. 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 All home care advised has been implemented already. ASK with Dr. Rivera 11/17/23 @ 225a. Insurance is verified as active prior to [...] Info) Description 02/21/2025 1:00 PM EDT Telemedicine [facility] MED & PEDS [address] [place] [address] Jovita Byrne PharmD 230 [place] [address] documented as of this encounter Visit Diagnoses Not on filedocumented in this encounter Additional Health Concerns Assessment Noted Time PHQ-9 Depression Total Score: 22 023 11:16 AM EDT documented as of this encounter Care Teams Tool Turret Lathe Set Up Operator Relationship Specialty Start Date End Date Kristin Rivera MD [address] [place] [address] PCP - General Family Medicine 01/17/17 Jovita Byrne, Alyssia 230 [place], [place] [phone] Pharmacist Internal Medicine 09/14/24 documented as of this encounter
--- OUTSIDE RECORDS SUMMARY | 2025-02-18 09:27 | XMS_ITS | Encounter Summary ---
Author Organization [employer] Address [address] [facility] 7t [place] [address] Care Team Providers Care Seat Joiner Name Role Phone Kristin Rivera MD Primary Care Provider [phone] Jovita Byrne PharmD Unavailable [phone] Reason for Visit * Reason Onset Date Comments Referral 12/03/2023 Encounter Details Date Type Department Care Team (Late st Contact Info) Description 12/03/[address] [facility] MEDICINE [address] [place], [place] [phone] Kristin Rivera MD [address] [place], [place] [phone] Referral Social History Tobacco Use Types Packs/Day [...] any questions you can contact pt at [phone]. documented in this encounter Plan of Treatment Upcoming Encounters Date Type Department Care Team (Late st Contact Info) Description 02/21/2025 1:00 PM EDT Telemedicine [facility] MED & PEDS [address] [place] [address] Jovita Byrne PharmD 230 [place] [address] documented as of this encounter Visit Diagnoses Not on filedocumented in this encounter Additional Health Concerns Assessment Noted Time PHQ-9 Depression Total Score: 22 023 11:16 AM EDT documented as of this encounter Care Teams Seat Joiner Relationship Specialty Start Date End Date Kristin Rivera MD [address] [place] [address] PCP - General Family Medicine 01/17/17 Jovita Byrne PharmD [address] [place] [address] Pharmacist Internal Medicine 09/14/24 documented as of this encounter
--- OUTSIDE RECORDS SUMMARY | 2025-02-18 09:28 | XMS_ITS | Encounter Summary ---
Author Organization [employer] Address [address] [place] [address] 7t [place] [address] Care Team Providers Care In Home Sales Representative Name Role Phone Kristin Rivera MD Primary Care Provider [phone] Jovita Byrne PharmD Unavailable [phone] Reason for Visit * Reason Comments Med Refill Encounter Details Date Type Department Care Team ([facility] st Contact Info) Description 05/23/2024 Refill [facility] CHC MED & PEDS [address] [place], [place] [phone] Balwinder Maloney MD 505 [place] [address] Insomnia, unspecified type Social History Tobacco Use [...] 02/21/2025 1:00 PM EDT Telemedicine [facility] MED & PEDS [address] [place] [address] Jovita Byrne PharmD 230 [place] [address] documented as of this encounter Visit Diagnoses Diagnosis Insomnia, unspecified type documented in this encounter Additional Health Concerns Assessment Noted Time PHQ-9 Depression Total Score: 22 024 9:14 AM EST documented as of this encounter Care Teams In Home Sales Representative Relationship Specialty Start Date End Date Kristin Rivera MD [address] [place] [address] PCP - General Family Medicine 01/17/17 Jovita Byrne PharmD [address] [place] [address] Pharmacist Internal Medicine 09/14/24 documented as of this encounter
--- OUTSIDE RECORDS SUMMARY | 2025-02-18 09:28 | XMS_ITS | Encounter Summary ---
Author Organization [employer] Address [address] [facility] 7t [place] [address] Care Team Providers Care Software Quality Tester Name Role Phone Kristin Rivera MD Primary Care Provider [phone] Jovita Byrne PharmD Unavailable [phone] Reason for Visit * Reason Onset Date Comments Request For Order(s) 05/09/2023 Encounter Details Date Type Department Care Team ([facility] Contact Info) Description 05/09/2023 Telephone [facility] MED & PEDS 505 [place] [address] Kristin Rivera MD 505 [place] [address] Request For Order(s) Social History Tobacco Use [...] new mammo order to be sent to [facility] for screening as [facility] is requesting one. Pt [...] Description 02/21/2025 1:00 PM EDT Telemedicine [facility] MED & PEDS [address] [place] [address] Jovita Byrne PharmD [address] [place] [address] documented as of this encounter Visit Diagnoses Not on filedocumented in this encounter Additional Health Concerns Assessment Noted Time PHQ-9 Depression Total Score: 22 023 11:16 AM EDT documented as of this encounter Care Teams Software Quality Tester Relationship Specialty Start Date End Date Kristin Rivera MD [address] [place] [address] PCP - General Family Medicine 01/17/17 Jovita Byrne PharmD [address] [place] [address] Pharmacist Internal Medicine 09/14/24 documented as of this encounter
--- OUTSIDE RECORDS SUMMARY | 2025-02-18 09:28 | XMS_ITS | Encounter Summary ---
Author Organization [employer] Address [address] [facility] 7t [place] [address] Care Team Providers Care Registered Art Therapist Name Role Phone Kristin Rivera MD Primary Care Provider [phone] Jovita Byrne PharmD Unavailable [phone] Reason for Visit * Reason Onset Date Comments Med Request 07/27/2024 Encounter Details Date Type Department Care Team (Late st Contact Info) Description 07/27/2024 Telephone [facility] MEDICINE [address] [place], [place] [phone] Kristin Rviera MD [address] [place], [place] [phone] Med Request Social History Tobacco Use Types Packs/Day [...] encounter Miscellaneous Notes * Telephone Encounter - Kelsea Martinez RN - 07/27/2024 1:45 PM EDT TC to patient. No answer. Detailed message left on voicemail. * Telephone Encounter - Kristin Rivera MD - 07/27/2024 11:59 AM EDT Advise pt to check twice * Telephone Encounter - Sridhar Cason - 07/27/2024 9:36 AM EDT Tc from pt requesting Test strips due to receiving de monitor but hasn't received supplies. Pt inform is testing 3x a day need sufficient test strips to be sent to pharmacy [id number] [place] - [address] [place] [address] documented in this encounter Plan of Treatment Upcoming Encounters Date Type Department Care Team (Late st Contact Info) Description 02/21/2025 1:00 PM EDT Telemedicine [facility] MED & PEDS 505 [place] [address] Jovita Byrne, Alyssia [address] [place] [address] documented as of this encounter Visit Diagnoses Not on filedocumented in this encounter Additional Health Concerns Assessment Noted Time PHQ-9 Depression Total Score: 17 025 9:08 AM EDT documented as of this encounter Care Teams Registered Art Therapist Relationship Specialty Start Date End Date Kristin Rivera MD [address] [place] [address] PCP - General Family Medicine 01/17/17 Jovita Byrne, SaskiaD [address] [place] [address] Pharmacist Internal Medicine 09/14/24 documented as of this encounter
--- OUTSIDE RECORDS SUMMARY | 2025-02-18 09:28 | XMS_ITS | Encounter Summary ---
Author Organization [employer] Address [address] [facility] 7t [place] [address] Care Team Providers Care Bilingual Customer Service Specialist Name Role Phone Kristin Rivera MD Primary Care Provider [phone] Jovita Byrne PharmD Unavailable [phone] Reason for Visit * Reason Comments Med Refill Encounter Details Date Type Department Care Team ([facility] Contact Info) Description 07/18/2024 Refill [facility] CHC MED & PEDS [address] [place], [place] [phone] Kristin Rivera MD 505 [place] [address] Social History Tobacco Use Types Packs/Day Years [...] Info) Description 02/21/2025 1:00 PM EDT Telemedicine [facility] MED & PEDS [address] [place] [address] Jovita Byrne PharmD 230 [place] [address] documented as of this encounter Visit Diagnoses Not on filedocumented in this encounter Additional Health Concerns Assessment Noted Time PHQ-9 Depression Total Score: 17 025 9:08 AM EDT documented as of this encounter Care Teams Bilingual Customer Service Specialist Relationship Specialty Start Date End Date Kristin Rivera MD [address] [place] [address] PCP - General Family Medicine 01/17/17 Jovita Byrne PharmD [address] [place] [address] Pharmacist Internal Medicine 09/14/24 documented as of this encounter
--- OUTSIDE RECORDS SUMMARY | 2025-02-18 09:28 | XMS_ITS | Encounter Summary ---
Author Organization [employer] Address [address] [place] [address] 7t [place] [address] Care Team Providers Care Improvement Lead Name Role Phone Kristin Rivera MD Primary Care Provider [phone] Jovita Byrne PharmD Unavailable [phone] Reason for Visit * Reason Comments Med Refill Encounter Details Date Type Department Care Team (Late Contact Info) Description 12/14/2022 Refill [facility] MED & PEDS [address] [place] [address] Kristin Rivera MD 505 [place] [address] Social History Tobacco Use Types Packs/Day Years [...] Encounters Date Type Department Care Team (Late Contact Info) Description 02/21/2025 1:00 PM EDT Telemedicine [facility] MED & PEDS 505 [place] [address] Jovita Byrne, Alyssia 230 [place] [address] documented as of this encounter Visit Diagnoses Not on filedocumented in this encounter Additional Health Concerns Assessment Noted Time PHQ-9 Depression Total Score: 22 023 11:16 AM EDT documented as of this encounter Care Teams Improvement Lead Relationship Specialty Start Date End Date Kristin Rivera MD 230 [place] [address] PCP - General Family Medicine 01/17/17 Jovita Byrne, Alyssia [address] [place] [address] Pharmacist Internal Medicine 09/14/24 documented as of this encounter
--- OUTSIDE RECORDS SUMMARY | 2025-02-18 09:28 | XMS_ITS | Clinical Summary ---
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 12/14/19 20 Active albuterol 108 (90 Base) MCG/ACT inhalerIndicatio ns:Mild intermittent asthma without complication INHALE 2 PUFFS EVERY 4 HOURS IF NEEDED FOR WHEEZING. 8.5 g 11 10/17/19 24 Active SUMAtriptan (Imitrex) 25 MG tablet TAKE 1 TABLET BY MOUTH IF NEEDED FOR MIGRAINE. MAY REPEAT DOSE IN 2 HOURS IF NO RELIEF. MAX 2/24 HR 9 tablet 6 04/27/20 24 Active cetirizine (ZyrTEC) 10 MG tabletIndication s:Mild intermittent asthma without complication TAKE 1 TABLET BY MOUTH EVERY DAY 90 tablet 3 07/10/19 25 Active buPROPion (Wellbutrin) 75 MG tablet TAKE 1 TABLET (75 MG) BY MOUTH ONCE PER DAY. 90 tablet 3 07/10/19 25 Active FREESTYLE LITE test strip Use to test blood sugar 2 times daily 100 each 12 07/28/19 25 026 Active Lancets misc Use to test blood sugar 2 times daily 100 each 07/28/19 25 Active armodafinil (Nuvigil) 250 MG tablet take 1 tablet by mouth daily in the morning 08/22/19 25 Active mirtazapine (Remeron) 7.5 MG tablet START 1 TAB BY MOUTH DAILY AT BEDTIME,IF NEEDED AFTER 3 DAYS INCREASE TO 2 TABS AT BEDTIME FOR SLEEP 09/09/19 25 Active empagliflozin (Jardiance) 10 MG Take 1 tablet (10 mg) by mouth Once per day. 90 tablet 1 09/15/19 25 Active Blood Glucose Monitoring Suppl (CAXAStyle Minneola Lite) w/Device kit Use to test blood sugar 2 times daily 1 kit 10/06/19 25 Active gabapentin (Neurontin) 600 MG tablet Take 600 mg by mouth at bedtime. Active aspirin 81 MG EC tablet Take 1 tablet (81 mg) by mouth Once per day. 90 tablet 3 10/23/19 25 Active atorvastatin (Lipitor) 40 MG tablet Take 1 tablet (40 mg) by mouth Once per day. 90 tablet 3 10/23/19 25 Active triamcinolone (Nasacort) 55 MCG/ACT nasal inhalerIndicatio ns:Allergy, subsequent encounter Administer 1 spray into each nostril 2 times daily. 16.9 mL 3 10/25/19 25 Active ascorbic acid (Vitamin C) 250 MG chewable tablet CHEW 1 TABLET BY MOUTH EVERY MORNING 90 tablet 12/12/19 25 Active ferrous sulfate 325 (65 Fe) MG EC tablet TAKE ONE TABLET BY MOUTH EVERY OTHER DAY. TAKE WITH VITAMIN C TO HELP ABSORPTION 45 tablet 12/12/19 25 Active Zepbound 5 MG/0.5ML solution auto-injector INJECT ONE PEN (=5MG) SUBCUTANEOUSLY ONCE A WEEK DIRECTED 2 mL 2 01/18/20 25 Active metFORMIN (Glucophage) 1000 MG tabletIndication s:Type 2 diabetes mellitus without complication, without long-term current use of insulin (HCC) Take 1 tablet (1,000 mg) by mouth with breakfast. 90 tablet 1 01/18/20 25 Active Tirzepatide (Mounjaro) 5 MG/0.5ML solution auto-injectorInd ications:Type 2 diabetes mellitus without complication, without long-term current use of insulin (HCC) Inject 5 mg under the skin 1 (one) time per week. 2 mL 2 01/18/20 Active scopolamine (Transderm-Scop) 1 MG/3DAYS patch [address] 1 patch on the skin every 3rd (third) day. 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 ANISH (generalized anxiety disorder) 12/12/2022 Other insomnia 09/10/2022 Assessment & Plan (09/10/2022 11:02 AM EDT): Will start on trazodone, side effects discussed, lifestyle modifications were discussed Mild intermittent asthma without complication Candidal intertrigo 09/19/2017 Arthropathy 01/17/2017 Benign hypertension 01/17/2017 Assessment & Plan (11/18/2023 6:35 AM EDT): At goal today in office Hypercholesterolemia 01/17/2017 Severe episode of recurrent major depressive disorder, without psychotic features (CMS/HCC) 01/17/2017 Assessment & Plan (11/18/2023 6:37 AM EDT): Recommend restarting Zoloft as untreated depression and anxiety could be contributing to poor sleep Assessment & Plan (12/31/2022 3:06 PM EDT): Assessment: Patient with increasing depression (depressed mood, anhedonia, sleep disturbance, low [...] requested a new referral for OP therapy. At this time Lin Rodriguez meets criteria for Visit Diagnoses: Problem List Items Addressed This Visit Other Severe episode of recurrent major depressive disorder, without psychotic features (CMS/HCC) Anxiety Patient ready to address current needs Yes Strengths-Lin has a supportive family and she is in the action stage of change. PLAN: 1. Follow up with [facility]: Recommended for follow-up: As needed 2. Patient goal is to explore coping mechanisms and decrease depression and anxiety symptoms 3. Behavioral Recommendations 4. OP therapy 5. 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 Journaling Assessment & Plan (12/12/2022 4:30 PM EDT): [...] of change. PLAN: 1. Follow up with [facility]: Not recommended for follow-up 2. Patient goal is to explore coping mechanisms and decrease depression and anxiety symptoms 3. Behavioral Recommendations a. OP therapy b. 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 Journaling Type 2 [...] PO hydration and fu with PCP Encounters * This document contains information received from the source organization and may not represent a complete record from that organization. Date Type Department Care Team Description 02/17/2025 Telephone [facility] [address] [place] [address] Kristin Rivera MD Error (VOID this visit) 01/26/2025 Travel 01/18/2025 Travel 01/18/2025 Orders Only [facility] [address] [place] [address] Kristin Rivera MD 01/18/2025 Telephone [facility] [address] [place] [address] Jovita Byrne PharmD New Med Request 01/17/2025 1:00 PM EDT Telemedicine [facility] [address] [place] [address] Jovita Byrne PharmD Type 2 diabetes mellitus without complication, without long-term current use of insulin ([facility]) (Primary Dx) 01/17/2025 Travel 01/16/2025 Refill [facility] [address] [facility] [place] [address] Kristin Rivera MD 12/29/2024 Population Health Risk Score [facility] ([facility] Department [address] [place] [id number] Provider, Population Health Generic 12/23/2024 9:30 AM EDT Office Visit [facility] [address] [place] [address] Kristin Rivera MD Type 2 diabetes mellitus without complication, without long-term current use of insulin ([facility]) (Primary Dx); Benign hypertension; Screening for colon cancer; Encounter for screening mammogram for breast cancer 12/23/2024 Travel 12/22/2024 Telephone [facility] [address] [facility] [place] [address] Kristin Rivera MD Chart Prep 12/20/2024 Telephone [facility] [address] [place] [address] Kristin Rivera MD Appointment Request 12/13/2024 Travel 12/10/2024 Refill [facility] [address] [place] [address] Kristin Rivera MD 11/25/2024 Telephone [facility] [address] [place] [address] Kristin Rivera MD TC R/S Appt from Last 3 Months Immunizations Immunization Administration Dates Next Due Influenza Injectable Quadriv alant Preservative Free IIV4 MDCK 02/10/2020 Influenza injectable quadriv alent IIV4 with preservative 03/16/2018 Influenza injectable quadriv alent preservative free 02/15/2022,03/03/2021 Influenza, seasonal, injecta ble, preservative free 04/07/2024 Moderna Covid-19 Vaccine 12+ 03/03/2021,08/26/19 21,07/28/2020 Pfizer Covid-19 Vaccine 12+ 04/07/2024 TD (adult), 2 Lf tetanus tox oid, preservative free, adsorbed 05/21/2018,03/16/2018 Tdap 06/24/2024,06/16/2007 Zoster, Recombinant 06/24/2024 Social History Tobacco Use Types Packs/Day Years [...] Sign Reading Time Taken Comments Blood Pressure 119/81 12/23/2024 9:24 AM EDT Pulse 102 12/23/2024 9:24 AM EDT Temperature 36.1 C (97 F) 12/23/2024 9:24 AM EDT Respiratory Rate 20 12/23/2024 9:24 AM EDT Oxygen Saturation 99% 12/23/2024 9:24 AM EDT Inhaled Oxygen Concentration - - Weight 92.1 kg (203 lb) 12/23/2024 9:24 AM EDT Height 170.2 cm (5' 7 ) 12/23/2024 9:24 AM EDT Body Mass Index 31.79 12/23/2024 9:24 AM EDT Plan of Treatment Upcoming Encounters Date Type Department Care Team (Late st Contact Info) Description 02/21/2025 1:00 PM EDT Telemedicine [facility] [address] [place] [address] Jovita Byrne, PharmD [address] [place] [address] Health Maintenance Due Date Last Done Comments CT Colonography 1971 Colonoscopy 1971 FIT 1971 HIV Screening 1970 Sigmoidoscopy 1971 Eye Exam 1981 Hepatitis C Screening 1989 Diabetes: Urine Protein Screening 1990 Hepatitis B Vaccines (1 of 3 - 19+ 3-dose series) 1990 Pneumococcal Vaccine: 50+ Years (1 of 2 - PCV) 1990 Mammogram 06/07/2024 06/07/2023, 04/17/2018 Zoster Vaccines (2 of 2) 08/19/2024 06/24/2024 Influenza Vaccine (#1) 2024 , 02/15/2022, 03/03/2021, Additional history exists Alcohol/Substance Use Screening 04/07/2025 04/07/2024 SDOH Screening 04/07/2025 04/07/2024 Lipid Panel 05/06/2025 05/06/2024, 04/28, 01/16/2021 Diabetes: Hemoglobin A1C 06/25/2025 025, 09/14/2024, 05/06/2024, Additional history exists Depression Monitoring 08/03/2025 02/02/2025, 025 Disability Screening 09/13/2025 09/13/2024 Diabetes: Foot Exam 12/23/2025 12/23/2024, 12/23/2024, 12/23/2024, Additional history exists Tobacco Screening 12/23/2025 12/23/2024 FOBT 12/31/2025 12/31/2024, 11/12/2019 Colorectal Cancer Screening 01/01/2028 FIT DNA/Cologuard 01/01/2028 12/31/2024 DTaP/Tdap/Td Vaccines (5 - Td or Tdap) 06/24/2034 06/24/2024, 05/21/2018, 03/16/2018, Additional history exists RSV Patients and Patients Aged 60 years or older (1 - 1-dose 75+ series) 2046 COVID-19 Vaccine Completed 04/07/2024, , 02/15/2022, Additional history exists HIB Vaccines Aged Out [...] patient's age to complete this topic Meningococcal B Vaccine Aged Out No l onger eligible based on patient's age to complete [...] Procedure Name Priority Date/Time Associated Diagnosis Comments LAB COLOGUARD COLON CANCER SCREEN Routine 12/31/2024 1:00 PM EDT Screening for colon cancer POCT GLYCATED HEMOGLOBIN, TOTAL Routine 12/23/2024 9:29 AM EDT Type 2 diabetes mellitus without complication, without long-term current use of insulin (CMS/HCC) POCT GLUCOSE Routine 12/23/2024 9:27 AM EDT Type 2 diabetes mellitus without complication, without long-term current use of insulin (CMS/HCC) LIPID PANEL, STANDARD Routine 05/06/2024 8:34 AM EST Type 2 diabetes mellitus without complication, without long-term current use of insulin (CMS/HCC) BI MAMMOGRAM SCREENING TOMOSYNTHESIS BILATERAL Routine 06/07/2023 7:40 AM EST from Last 3 Months or Most Recently Relevant to Health Maintenance Results * Cologuard?? colon cancer screening (12/31/2024 1:00 PM EDT) Cologuard Result Negative Negative 01/07/20 11:53 PM EDT [facility] (CLIA #:[id number]) Comment: The Cologuard (TM) test was performed on this specimen. NEGATIVE TEST RESULT. A negative Cologuard result indicates a low likelihood that a colorectal cancer (CRC) or advanced adenoma (adenomatous polyps with more advanced pre-malignant features) is present. The chance that a person with a negative Cologuard test has a colorectal cancer is less than 1 in 1500 (negative predictive value >99.9%) or has an advanced adenoma is less than 5.3% (negative predictive value 94.7%). These data are based on a prospective cross-sectional study of 10,000 individuals at average risk for colorectal cancer who were screened with both Cologuard and colonoscopy. (Ranulfo Robison. et al, N Engl J Med 2014;370(14):1286- 1297) The normal value (reference range) for this assay is negative. COLOGUARD RE-SCREENING RECOMMENDATION: Periodic colorectal cancer screening is an important part of preventive healthcare for asymptomatic individuals at average risk for colorectal cancer. Following a negative Cologuard result, the [place] [employer] and U.S. Multi-Society Task Force screening guidelines recommend a Cologuard re-screening interval of 3 years. References: [place] [employer] Guideline for Colorectal Cancer Screening: https://www.cancer.org/cancer/pymnz-gkikaj-gyhraa/tzytqjmjn-akzghoxjx-inidvks/ac s-rec ommendations.html.; Anthony MILLER, Shelley MCLAUGHLIN, Julio MayaK, Colorectal Cancer Screening: Recommendations for Physicians and Patients from the U.S. Multi-Society Task Force on Colorectal Cancer Screening , Am J Gastroenterology 2017; 112:0861-3052. TEST DESCRIPTION: Composite algorithmic analysis of stool DNA-biomarkers with hemoglobin immunoassay. Quantitative values of individual biomarkers are not reportable and are not associated with individual biomarker result reference ranges. Cologuard is intended for colorectal cancer screening of adults of either sex, 45 years or older, who are at average-risk for colorectal cancer (CRC). Cologuard has been approved for use by the U.S. FDA. The performance of Cologuard was established in a cross sectional study of average-risk adults aged 50-84. Cologuard performance in patients ages 45 to 49 years was estimated by sub-group analysis of near-age groups. Colonoscopies performed for a positive result may find as the most clinically significant lesion: colorectal cancer [4.0%], advanced adenoma (including sessile serrated polyps greater than or equal to 1cm diameter) [20%] or non- advanced adenoma [31%]; or no colorectal neoplasia [45%]. These estimates are derived from a prospective cross-sectional screening study of 10,000 individuals at average risk for colorectal cancer who were screened with both Cologuard and colonoscopy. (Ranulfo Bal al, N Engl J Med 2014;370(14):2533-8536.) Cologuard may produce a false negative or false positive result (no colorectal cancer or precancerous polyp present at colonoscopy follow up). A negative Cologuard test result does not guarantee the absence of CRC or advanced adenoma (pre-cancer). The current Cologuard screening interval is every 3 years. ([place] [employer] and U.S. Multi-Society Task Force). Cologuard performance data in a 10,000 patient pivotal study using colonoscopy as the reference method can be accessed at the following location: www.[employer]/results. Additional description of the Cologuard test process, warnings and precautions can be found at www.[employer].com. Stool specimen (specimen) 12/31/2024 1:00 PM EDT 01/03/2025 10:36 AM EDT Kristin Rivera MD LAB MOLECULAR DIAGNOSTICS ORDERA BLES Final Result [facility] (CLIA #:[id number]) [address] [place] [address], * (ABNORMAL) POCT HGB A1C (12/23/2024 9:29 AM EDT) Hemoglobin A1C 6.0(A) 4.0 - 5.7 % QC Media Lot # [id number] Lot# Expiration Date 311, Blood 12/23/2024 9:29 AM EDT Kristin Rivera MD POINT OF CARE TEST ENTER/EDIT OR DERABLES Final Result * POCT Glucose (12/23/2024 9:27 AM EDT) Glucose Blood, POC 117 60 - 200 mg/dL Comment:fasting QC Media Lot # [id number] Lot# Expiration Date Blood Capillary blood specimen / Unknown 12/23/2024 9:27 AM EDT Kristin Rivera MD POINT OF CARE TEST ENTER/EDIT OR DERABLES Final Result * (ABNORMAL) Lipid Panel, Standard (05/06/2024 8:34 AM EST) Triglycerides 163(H) <150 mg/dL [facility] Comment:Slight Lipemia.Courtney able Triglyceride: less than 150 mg/dLBorderline High Triglyceride 150-199 mg/dLHigh Triglyceride: 200-499 mg/dLVery High Triglyceride: greater than or equal to 5OO mg/dL Cholesterol 292(H) <200 mg/dL [facility] Comment:Desirable Cholestero l: less than 200 mg/dLBorderline High Cholesterol: 200-239 mg/dLHigh Cholesterol: greater than 239 mg/dL LDL Cholesterol Calculated 193(H) <100 mg/dL [facility] Comment:Desirable LDL: less than 100 mg/dLNear Optimal/Above Optimal LDL: 110- 129 mg/dLBorderline High LDL: 130-159 mg/dLHigh LDL: 160-189 mg/dLVery High LDL: greater than or equal to 190 mg/dL HDL Cholesterol 67 >40 mg/dL [facility] Comment:Desirable HDL: great er than 40 mg/dL Note: This HDL assay may give artificially low results in patients with liver disease. Blood Venous blood specimen / Unknown 05/06/2024 8:34 AM EST 05/06/2024 2:07 PM EST us Kristin Rivera MD LAB BLOOD ORDERABLES Final Resul t [facility] [address] [place] [address] [phone] * BI Mammogram Screening Tomosynthesis Bilateral (06/07/2023 7:40 AM EST) Anatomical Region Laterality Modality Breast Bilateral Mammography 06/07/2023 7:40 AM EST Narrative 06/21/2023 1:22 PM EST [address] 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 [place], [place] [address] Mammography Report Signed Patient: Lin RodriguezMR#: [id number] 50 : 1970Acct:[id number] Age/Sex: 52 / FADM Date: 06/07/23 Loc: HO.MAMMO Attending Dr: Kristin Rivera MD Ordering Physician: Kristin Rivera MDResults: 1Negati ve Date of Service: 06/07/23Follow Up: 1 Year From Orig inal Mammogram Procedure(s): MM tomosynthesis screening BI Accession Number(s): [id number] cc: Kristin Rivera MD EXAMINATION: MM SCREENING [...] in OV> 06/21/23 1318 DD/ 0740 TD/TT: Insole Toe Snipping Machine Operator: Kristin Rivera MD IMG BI PROCEDURES Edited Result - Final from Last 3 Months or Most Recently Relevant to Health Maintenance Insurance [facility] C3 Care Teams Loop Machine Operator Relationship Specialty Start Date End Date Kristin Rivera MD [address] [place] [address] PCP - General Family Medicine 01/17/17 Jovita Byrne PharmD [address] [place] [address] Pharmacist Internal Medicine 09/14/24
[2025-02-18 15:22] LABS: Alanine Aminotransferase 20 U/L (0-31); Albumin Level 4.2 g/dL (3.5-5.0); Alkaline Phosphatase 85 U/L (39-117); Aspartate Amino Transferase 24 U/L (5-31); Cholesterol 199 mg/dL (<200); HDL Cholesterol 63 mg/dL (>40); Total Protein 7.1 g/dL (6.5-8.0); Triglycerides 162 mg/dL (<150)
[2025-02-18 15:49] LABS: Microalbum/Creatinine Ratio Ur 7.3 ug/mg cr (<30)
== END 2025-02-18 08:50 | disposition home or self-care (01) ==
LOC: HO.CHCLDS 08:49
PROVIDERS: Visit Provider Student in an Organized Health Care Education/Training Program
DX: E11.9 Type 2 diabetes mellitus without complications (principal)
CPT/HCPCS: 36415; 80061; 80076; 82043; 82570